=== PATIENT | female | born 1935 | race Caucasian/White ===

== ENCOUNTER 2020-02-24 19:15 | Inpatient (IN) | payer MEDICARE, SELFPAY ==
[2020-02-24] VITALS (12 sets, daily range): BP systolic 101–144; BP diastolic 57–106; PULSE 79–98; RESP 16–44; TEMP 36.9–37.2; O2SAT 90–95; BMI 24.3
--- NOTE | 2020-02-24 19:28 | DI.RAD.S_ITS ---
PROCEDURE: XR CHEST 1V INDICATIONS: SOB, cough, chest pain TECHNIQUE: One view of the chest was acquired. COMPARISON: None. FINDINGS: Surgical changes and devices: Post median sternotomy and CABG. Lungs and pleura: Left lung base is difficult to evaluate due to suspected diaphragmatic hernia. There appears to be mild airspace opacity at the left lung base. No significant pleural effusions. No pneumothorax. Mediastinum: Mediastinal contours are within normal limits. Suspect left diaphragmatic hernia versus diaphragmatic eventration. Marked cardiomegaly. Bones and chest wall: No suspicious bony lesions. Overlying soft tissues appear unremarkable. IMPRESSION: 1. Marked cardiomegaly. 2. Suspect mild airspace opacity at the left lung base. This could be due to pneumonia or atelectasis. 3. Left diaphragmatic hernia of versus diaphragmatic eventration. -This could be further evaluated with CT of the chest. Dictated by: Stepan Ferro M.D. on 02/24/2020 at 20:30 Approved by: Stepan Ferro M.D. on 02/24/2020 at 20:33
--- NOTE | 2020-02-24 19:36 | PC.NURSE ---
When pt arrived her only complaint was persistent middle back pain. Upon further questioning she reports that around 0200 this AM she started to experience body aches, chills, slight chest pain, and back pain and was convinced that she had COVID and went to the walk in clinic this morning to be tested. Test will not result for 3 days. All of her symptoms have resolved except her back pain. MD informed of updated complaints
[2020-02-24 19:39] LABS: Add Manual Diff / Slide Review NO; Basophils Absolute Auto 100 /uL (0-100); Basophils Percent Auto 0.2 % (0-2); Eosinophils Absolute Auto 0 /uL (0-450); Hematocrit 39.2 % (36-46); Hemoglobin 13.4 g/dL (12.0-16.0); Lymphocytes Absolute Auto 600 /uL (1100-4500); Lymphocytes Percent Auto 2.6 % (25-40); Mean Corpuscular Hemoglobin 32.5 PG (26-34); Mean Corpuscular Volume 95.6 fL (80-100); Monocytes Absolute Auto 1200 /uL (0-900); Monocytes Percent Auto 5.6 % (3-14); Neutrophils Absolute Auto 20300 /uL (1500-7000); Neutrophils Percent Auto 91.6 % (50-75); Platelet Count 205 X10^3/uL (150-400); Red Cell Distribution Width 14.4 % (11.6-14.8); White Blood Cell Count 22.2 X10^3/uL (4.5-11.0)
[2020-02-24 19:49] LABS: D Dimer 316 ng/mL (<230)
[2020-02-24 19:52] LABS: Alanine Aminotransferase 33 IU/L (<35); Albumin 4.4 g/dL (3.5-5.0); Albumin Globulin Ratio 1.3 (1.0-2.8); Alkaline Phosphatase 96 U/L (38-126); Aspartate Aminotransferase 47 IU/L (14-36); BUN Creatinine Ratio 23.6 (6-22); Bilirubin Total 1.3 mg/dL (0.2-1.3); Blood Urea Nitrogen 21 mg/dL (7-17); Calcium 9.6 mg/dL (8.4-10.2); Carbon Dioxide 25 mmol/L (22-32); Chloride 92 mmol/L (98-107); Creatine Kinase 121 U/L (30-135); Estimated Glomerular Filt Rate > 60.0 mL/min (>60); Globulin 3.5 g/dL (1.7-4.1); Glucose 134 mg/dL (80-110); HEMOLYSIS < 15 (0-50); Lipase 96 U/L (23-300); Potassium 3.8 mmol/L (3.4-5.1); Sodium 126 mmol/L (137-145); Total Protein 7.9 g/dL (6.3-8.2)
[2020-02-24 20:05] LABS: COVID19 -Nasal RAPID Negative (Negative)
[2020-02-24 20:07] LABS: Procalcitonin 9.67 ng/mL (<0.5)
[2020-02-24] MEDS: SODIUM CHLORIDE 0.9% 1,000 ML 150 ML IV (20:10)
[2020-02-24 20:28] LABS: NT-proBNP (BNP-Adult 18+) 4800 pg/mL (<450)
[2020-02-24 20:32] LABS: CKMB % Relative Index 0.9 % (1.5-5.0); Creatine Kinase MB 1.09 ng/mL (<2.37); Troponin I < 0.012 ng/mL (0.01-0.034)
--- NOTE | 2020-02-24 20:59 | ED.BACK ---
HPI - Back Pain/Injury General Chief Complaint: Back Pain/Injury Stated Complaint: back pain Time Seen by Provider: 02/24/20 19:20 Source: patient and EMS Limitations: no limitations History of Present Illness HPI Narrative: 84-year-old female former smoker with history of hypertension, hyperlipidemia, hypothyroid presents with a chief complaint of ongoing shortness of breath with productive cough, fever, chills and back pain. She states her back pain is worse when she takes a deep breath. She denies nausea or vomiting. She denies any abdominal pain constipation or diarrhea. She denies any dysuria, frequency or urgency. She was seen and evaluated at an outside clinic earlier today and had a COVID swab which will not return for many days. Minimal exertion will cause room air pulse ox to dip into the upper 80s MD Complaint: back pain Onset (ago): hour(s) Duration: intermittent Similar Symptoms Previously: No Location: thoracic spine Severity: mild Quality: sharp Radiation: none Exacerbating factors: deep breaths Associated symptoms: fever and chills Related Data Home Medications Medication Instructions Recorded Confirmed amlodipine 5 mg PO DAILY 02/24/20 02/24/20 atorvastatin 20 mg PO BID 02/24/20 02/25/20 hydrochlorothiazide 12.5 mg PO DAILY 02/24/20 02/24/20 levothyroxine 88 mcg PO DAILY 02/24/20 02/25/20 losartan 50 mg PO BID 02/24/20 02/24/20 metoprolol tartrate 50 mg PO BID 02/24/20 02/24/20 omeprazole 20 mg PO BEDTIME 02/24/20 02/24/20 warfarin 3.75 mg PO SEEINSTR 02/24/20 02/24/20 warfarin 5 mg PO SEEINSTR 02/24/20 02/24/20 ferrous gluconate 324 mg PO DAILY 02/25/20 02/25/20 magnesium oxide 400 mg PO BID 02/25/20 02/25/20 Allergies Allergy/AdvReac Type Severity Reaction Status Date / Time No Known Drug Allergies Allergy Verified 02/24/20 19:26 Review of Systems Constitutional Constitutional: Reports body ache(s), Reports chills, Denies fatigue, Reports fever(s), Denies frequent falls, Denies lethargy and Denies weakness Eyes Eyes: Denies change in vision, Denies eye discharge, Denies irritation and Denies loss of vision ENT Ears, Nose, Mouth, and Throat: Denies change in voice, Denies dizziness, Denies neck pain, Denies sore throat and Denies throat swelling Cardiovascular Cardiovascular: Denies chest pain, Denies irregular heart rhythm, Denies lightheadedness, Denies palpitations, Reports dyspnea, Denies dyspnea on exertion and Denies orthopnea Respiratory Respiratory: Reports cough, Reports pain with cough, Reports dyspnea, Denies dyspnea on exertion and Denies wheezing Gastrointestinal Gastrointestinal: Denies abdominal pain, Denies change in bowel habits, Denies diarrhea, Denies nausea and Denies vomiting Musculoskeletal Musculoskeletal: Reports back pain, Denies neck pain and Denies numbness Integumentary/Breasts Skin/Breast: Denies pruritus, Denies erythema, Denies rash and Denies wounds Neurologic Neurologic: Denies behavioral changes, Denies confusion, Denies dizziness, Denies frequent falls, Denies loss of vision, Denies numbness and Denies weakness Psychiatric Psychiatric: Denies anxiety, Denies behavioral changes, Denies confusion, Denies depression, Denies homicidal ideation and Denies suicidal ideation Endocrine Endocrine: Denies fatigue, Denies flushing and Denies palpitations Hematologic/Lymphatic Hematologic/Lymphatic: Denies easy bruising Allergic/Immunologic Allergic/Immunologic: Denies urticaria, Denies throat swelling and Denies wheezing Patient History Medical History Atrial fibrillation, chronic Essential hypertension Hyperlipidemia Hypothyroid Social History household members: none Smoking Status: Former smoker alcohol intake: former Smoking Status: Never smoker alcohol intake frequency: 0-2 drinks per day Substance Use Type: does not use Exam Narrative Exam Narrative: GENERAL: [84] year old patient appears stated age. Well-nourished, well-developed patient, in mild distress. HEAD: Atraumatic. Normocephalic. EYES: Pupils equal round and reactive. Extraocular motions intact. No scleral icterus. No injection or drainage. ENT: Nose without bleeding, purulent drainage. Throat without erythema, tonsillar hypertrophy or exudate. Airway patent. NECK: Trachea midline. Non tender CARDIOVASCULAR: Regular rate and rhythm without murmurs, gallops, or rubs. RESPIRATORY: Faint crackles in bases, no significant work of breathing GASTROINTESTINAL: Abdomen soft, non-tender, nondistended. EXTREMITIES: No edema or joint tenderness. BACK: Nontender without deformity or crepitance. No flank tenderness. NEURO: AOx3. SKIN: No rash or erythema of visible areas Initial Vital Signs Initial Vital Signs: Vital Signs Temperature 98.5 F 02/24/20 19:22 Pulse Rate 95 H 02/24/20 19:22 Respiratory Rate 16 02/24/20 19:22 Blood Pressure 144/106 H 02/24/20 19:22 Pulse Oximetry 93 02/24/20 19:22 Course Orders Ordered: ED Orders 02/24/20 19:26 Complete Blood Count AUTO DIFF Stat Comprehensive Metabolic Panel Stat D Dimer Stat Lactate (Lactic Acid) Stat Lipase Stat Magnesium Stat NT-proBNP (BNP-Adult 18+) Stat Procalcitonin Stat Prothrombin Time INR Stat Troponin & CK Cardiac Panel Stat 02/24/20 19:27 COVID19 Stat 02/24/20 19:28 XR chest 1V Stat 02/24/20 21:20 Blood Culture Stat 02/24/20 21:56 Respiratory Panel (Film Array) Stat Acetaminophen (Acetaminophen 325 Mg Tablet) 650 mg PO Q6HR PRN PRN Reason: Fever/Mild Pain (1-3) Amlodipine Besylate (Amlodipine 5 Mg Tablet) 5 mg PO DAILY LIA Atorvastatin Calcium (Atorvastatin 20 Mg Tablet) 40 mg PO BEDTIME LIA Last Admin: 02/25/20 01:29 Dose: 20 mg Documented by: MARVIN Azithromycin (Azithromycin 250 Mg Tablet) 500 mg PO DAILY LIA Calcium Carbonate (Calcium Carbonate 500 Mg Tab) 1,000 mg PO Q4HR PRN PRN Reason: Dyspepsia Last Admin: 02/25/20 01:28 Dose: 1,000 mg Documented by: MARVIN Sodium Chloride (Normal Saline 0.9%) 1,000 mls @ 150 mls/hr IV CONT LIA Last Infusion: 02/24/20 22:51 Dose: 0 mls/hr Documented by: Admin: 02/24/20 20:10 Dose: 150 mls/hr Documented by: ROSS Ceftriaxone Sodium/Dextrose (Rocephin) 1 gm in 50 mls @ 100 mls/hr IV Q24H LIA Levothyroxine Sodium (Levothyroxine 88 Mcg Tablet) 88 mcg PO QACBREAK LIA Losartan Potassium (Losartan 50 Mg Tablet) 50 mg PO BID COUNTS INCLUDE 234 BEDS AT THE [facility] Metoprolol Tartrate (Metoprolol Ir 50 Mg Tablet) 50 mg PO BID COUNTS INCLUDE 234 BEDS AT THE [facility] Naloxone HCl (Naloxone 0.4 Mg/Ml Vial) 0.2 mg IV Q2MIN PRN PRN Reason: Opiate Reversal Non-Formulary Medication (Warfarin) 3.75 mg PO SEEINSTR COUNTS INCLUDE 234 BEDS AT THE [facility] Ondansetron HCl (Ondansetron 4 Mg/2 Ml Inj) 4 mg IV Q8HR PRN PRN Reason: Nausea And Vomiting Pantoprazole Sodium (Pantoprazole 20 Mg Tablet) 20 mg PO BEDTIME COUNTS INCLUDE 234 BEDS AT THE [facility] Warfarin Sodium (Warfarin 5 Mg Tablet) 5 mg PO WEEKLY@1700 COUNTS INCLUDE 234 BEDS AT THE [facility] Warfarin Sodium (Warfarin 5 Mg Tablet) 5 mg PO WEEKLY@1700 COUNTS INCLUDE 234 BEDS AT THE [facility] Discontinued Medications Ceftriaxone Sodium/Dextrose (Rocephin) 2 gm in 50 mls @ 100 mls/hr IV NOW ONE Stop: 02/24/20 21:29 Last Infusion: 02/24/20 21:53 Dose: 0 mls/hr Documented by: Admin: 02/24/20 21:26 Dose: 100 mls/hr Documented by: ROSS Azithromycin 500 mg/ Dextrose 250 mls @ 250 mls/hr IV NOW ONE Stop: 02/24/20 21:01 Last Infusion: 02/24/20 22:52 Dose: 0 mls/hr Documented by: Admin: 02/24/20 21:52 Dose: 250 mls/hr Documented by: ROSS Ketorolac Tromethamine (Ketorolac 60 Mg/2 Ml Vial) 10 mg IV NOW ONE Stop: 02/24/20 21:44 Last Admin: 02/24/20 21:53 Dose: 10 mg Documented by: ROSS Warfarin Sodium (Warfarin 1 Mg Tablet) 3.75 mg PO NOW ONE Stop: 02/25/20 00:25 Last Admin: 02/25/20 02:37 Dose: Not Given Documented by: MARVIN Warfarin Sodium (Warfarin 2 Mg Tablet) 4 mg PO NOW ONE Stop: 02/25/20 02:01 Last Admin: 02/25/20 02:11 Dose: 4 mg Documented by: MARVIN Vital Signs Vital signs: Vital Signs - 8 hr 02/24/20 19:22 02/24/20 19:24 02/24/20 19:30 Temperature 98.5 F Pulse Rate 95 H 92 H 86 Respiratory Rate 16 25 H 27 H Blood Pressure 144/106 H Pulse Oximetry 93 92 92 02/24/20 19:32 02/24/20 20:00 02/24/20 20:30 Temperature Pulse Rate 89 98 H 86 Respiratory Rate 34 H 44 H 32 H Blood Pressure 119/59 L 109/77 117/68 Pulse Oximetry 91 95 92 02/24/20 21:00 02/24/20 21:30 02/24/20 22:00 Temperature Pulse Rate 89 88 84 Respiratory Rate 34 H 26 H Blood Pressure 126/67 123/67 129/79 Pulse Oximetry 93 93 92 02/24/20 22:30 Temperature Pulse Rate 84 Respiratory Rate Blood Pressure 101/57 L Pulse Oximetry 90 L MDM - Back Pain/Injury Lab Data Result diagrams: 02/24/20 19:26 02/24/20 19:26 Labs: Lab Results 02/24/20 02/24/20 02/24/20 Range/Units 19:26 19:26 19:26 WBC (4.5-11.0) X10^3/uL RBC (4.0-5.2) X10^6/uL Hgb (12.0-16.0) g/dL Hct (36-46) % MCV (80-100) fL MCH (26-34) PG MCHC (30-36) % RDW (11.6-14.8) % Plt Count (150-400) X10^3/uL Neut % (Auto) (50-75) % Lymph % (Auto) (25-40) % [place] % (Auto) (3-14) % Eos % (Auto) (2-4) % Baso % (Auto) (0-2) % Neut # (Auto) (3392-4146) /uL Lymph # (Auto) (1201-2657) /uL [place] # (Auto) (0-900) /uL Eos # (Auto) (0-450) /uL Baso # (Auto) (0-100) /uL PT (10.1-12.7) SECONDS INR (0.9-1.3) D-Dimer 316 H (<230) ng/mL Sodium (137-145) mmol/L Potassium (3.4-5.1) mmol/L Chloride (98-107) mmol/L Carbon Dioxide (22-32) mmol/L BUN (7-17) mg/dL Creatinine (0.52-1.04) mg/dL Estimated GFR (>60) mL/min BUN/Creatinine Ratio (6-22) Glucose (80-110) mg/dL Lactate (0.7-2.1) mmol/L Calcium (8.4-10.2) mg/dL Magnesium (1.6-2.3) mg/dL Total Bilirubin (0.2-1.3) mg/dL AST (14-36) IU/L ALT (<35) IU/L Alkaline Phosphatase (38-126) U/L Total Creatine Kinase (30-135) U/L CK-MB (CK-2) (<2.37) ng/mL CK-MB (CK-2) Rel Index (1.5-5.0) % Troponin I (0.01-0.034) ng/mL NT-Pro-B Natriuret Pep 4800 H (<450) pg/mL Total Protein (6.3-8.2) g/dL Albumin (3.5-5.0) g/dL Globulin (1.7-4.1) g/dL Albumin/Globulin Ratio (1.0-2.8) Lipase (23-300) U/L Procalcitonin 9.67 H (<0.5) ng/mL Chlamy pneumoniae PCR (Not Detect) Adenovirus (PCR) (Not Detect) B.parapertussis DNA PCR (Not Detect) Coronavirus OC43 (PCR) (Not Detect) Coronavirus HKU1 (PCR) (Not Detect) Coronavirus 229E (PCR) (Not Detect) SARS-CoV-2 (PCR) (Negative) Coronavirus NL63 (PCR) (Not Detect) Human Metapneumovir PCR (Not Detect) Influenza Type A (PCR) (Not Detect) Influenza Type B (PCR) (Not Detect) M. pneumoniae (PCR) (Not Detect) Parainfluenza 1 (PCR) (Not Detect) Parainfluenza 2 (PCR) (Not Detect) Parainfluenza 3 (PCR) (Not Detect) Parainfluenza 4 (PCR) (Not Detect) RSV (PCR) (Not Detect) Entero/Rhino (PCR) (Not Detect) 02/24/20 02/24/20 02/24/20 Range/Units 19:26 19:26 19:26 WBC 22.2 H (4.5-11.0) X10^3/uL RBC 4.10 (4.0-5.2) X10^6/uL Hgb 13.4 (12.0-16.0) g/dL Hct 39.2 (36-46) % MCV 95.6 (80-100) fL MCH 32.5 (26-34) PG MCHC 34.0 (30-36) % RDW 14.4 (11.6-14.8) % Plt Count 205 (150-400) X10^3/uL Neut % (Auto) 91.6 H (50-75) % Lymph % (Auto) 2.6 L (25-40) % [place] % (Auto) 5.6 (3-14) % Eos % (Auto) 0.0 L (2-4) % Baso % (Auto) 0.2 (0-2) % Neut # (Auto) 07745 H (2607-8273) /uL Lymph # (Auto) 600 L (8334-9774) /uL [place] # (Auto) 1200 H (0-900) /uL Eos # (Auto) 0 (0-450) /uL Baso # (Auto) 100 (0-100) /uL PT (10.1-12.7) SECONDS INR (0.9-1.3) D-Dimer (<230) ng/mL Sodium 126 L (137-145) mmol/L Potassium 3.8 (3.4-5.1) mmol/L Chloride 92 L (98-107) mmol/L Carbon Dioxide 25 (22-32) mmol/L BUN 21 H (7-17) mg/dL Creatinine 0.89 (0.52-1.04) mg/dL Estimated GFR > 60.0 (>60) mL/min BUN/Creatinine Ratio 23.6 H (6-22) Glucose 134 H (80-110) mg/dL Lactate 1.9 (0.7-2.1) mmol/L Calcium 9.6 (8.4-10.2) mg/dL Magnesium (1.6-2.3) mg/dL Total Bilirubin 1.3 (0.2-1.3) mg/dL AST 47 H (14-36) IU/L ALT 33 (<35) IU/L Alkaline Phosphatase 96 (38-126) U/L Total Creatine Kinase 121 (30-135) U/L CK-MB (CK-2) 1.09 (<2.37) ng/mL CK-MB (CK-2) Rel Index 0.9 L (1.5-5.0) % Troponin I < 0.012 (0.01-0.034) ng/mL NT-Pro-B Natriuret Pep (<450) pg/mL Total Protein 7.9 (6.3-8.2) g/dL Albumin 4.4 (3.5-5.0) g/dL Globulin 3.5 (1.7-4.1) g/dL Albumin/Globulin Ratio 1.3 (1.0-2.8) Lipase 96 (23-300) U/L Procalcitonin (<0.5) ng/mL Chlamy pneumoniae PCR (Not Detect) Adenovirus (PCR) (Not Detect) B.parapertussis DNA PCR (Not Detect) Coronavirus OC43 (PCR) (Not Detect) Coronavirus HKU1 (PCR) (Not Detect) Coronavirus 229E (PCR) (Not Detect) SARS-CoV-2 (PCR) (Negative) Coronavirus NL63 (PCR) (Not Detect) Human Metapneumovir PCR (Not Detect) Influenza Type A (PCR) (Not Detect) Influenza Type B (PCR) (Not Detect) M. pneumoniae (PCR) (Not Detect) Parainfluenza 1 (PCR) (Not Detect) Parainfluenza 2 (PCR) (Not Detect) Parainfluenza 3 (PCR) (Not Detect) Parainfluenza 4 (PCR) (Not Detect) RSV (PCR) (Not Detect) Entero/Rhino (PCR) (Not Detect) 02/24/20 02/24/20 02/24/20 Range/Units 19:26 19:26 19:27 WBC (4.5-11.0) X10^3/uL RBC (4.0-5.2) X10^6/uL Hgb (12.0-16.0) g/dL Hct (36-46) % MCV (80-100) fL MCH (26-34) PG MCHC (30-36) % RDW (11.6-14.8) % Plt Count (150-400) X10^3/uL Neut % (Auto) (50-75) % Lymph % (Auto) (25-40) % [place] % (Auto) (3-14) % Eos % (Auto) (2-4) % Baso % (Auto) (0-2) % Neut # (Auto) (6977-1235) /uL Lymph # (Auto) (8050-2705) /uL [place] # (Auto) (0-900) /uL Eos # (Auto) (0-450) /uL Baso # (Auto) (0-100) /uL PT 26.8 H (10.1-12.7) SECONDS INR 2.3 H (0.9-1.3) D-Dimer (<230) ng/mL Sodium (137-145) mmol/L Potassium (3.4-5.1) mmol/L Chloride (98-107) mmol/L Carbon Dioxide (22-32) mmol/L BUN (7-17) mg/dL Creatinine (0.52-1.04) mg/dL Estimated GFR (>60) mL/min BUN/Creatinine Ratio (6-22) Glucose (80-110) mg/dL Lactate (0.7-2.1) mmol/L Calcium (8.4-10.2) mg/dL Magnesium 1.7 (1.6-2.3) mg/dL Total Bilirubin (0.2-1.3) mg/dL AST (14-36) IU/L ALT (<35) IU/L Alkaline Phosphatase (38-126) U/L Total Creatine Kinase (30-135) U/L CK-MB (CK-2) (<2.37) ng/mL CK-MB (CK-2) Rel Index (1.5-5.0) % Troponin I (0.01-0.034) ng/mL NT-Pro-B Natriuret Pep (<450) pg/mL Total Protein (6.3-8.2) g/dL Albumin (3.5-5.0) g/dL Globulin (1.7-4.1) g/dL Albumin/Globulin Ratio (1.0-2.8) Lipase (23-300) U/L Procalcitonin (<0.5) ng/mL Chlamy pneumoniae PCR (Not Detect) Adenovirus (PCR) (Not Detect) B.parapertussis DNA PCR (Not Detect) Coronavirus OC43 (PCR) (Not Detect) Coronavirus HKU1 (PCR) (Not Detect) Coronavirus 229E (PCR) (Not Detect) SARS-CoV-2 (PCR) Negative (Negative) Coronavirus NL63 (PCR) (Not Detect) Human Metapneumovir PCR (Not Detect) Influenza Type A (PCR) (Not Detect) Influenza Type B (PCR) (Not Detect) M. pneumoniae (PCR) (Not Detect) Parainfluenza 1 (PCR) (Not Detect) Parainfluenza 2 (PCR) (Not Detect) Parainfluenza 3 (PCR) (Not Detect) Parainfluenza 4 (PCR) (Not Detect) RSV (PCR) (Not Detect) Entero/Rhino (PCR) (Not Detect) 02/24/20 Range/Units 21:56 WBC (4.5-11.0) X10^3/uL RBC (4.0-5.2) X10^6/uL Hgb (12.0-16.0) g/dL Hct (36-46) % MCV (80-100) fL MCH (26-34) PG MCHC (30-36) % RDW (11.6-14.8) % Plt Count (150-400) X10^3/uL Neut % (Auto) (50-75) % Lymph % (Auto) (25-40) % [place] % (Auto) (3-14) % Eos % (Auto) (2-4) % Baso % (Auto) (0-2) % Neut # (Auto) (9257-5870) /uL Lymph # (Auto) (5359-7551) /uL [place] # (Auto) (0-900) /uL Eos # (Auto) (0-450) /uL Baso # (Auto) (0-100) /uL PT (10.1-12.7) SECONDS INR (0.9-1.3) D-Dimer (<230) ng/mL Sodium (137-145) mmol/L Potassium (3.4-5.1) mmol/L Chloride (98-107) mmol/L Carbon Dioxide (22-32) mmol/L BUN (7-17) mg/dL Creatinine (0.52-1.04) mg/dL Estimated GFR (>60) mL/min BUN/Creatinine Ratio (6-22) Glucose (80-110) mg/dL Lactate (0.7-2.1) mmol/L Calcium (8.4-10.2) mg/dL Magnesium (1.6-2.3) mg/dL Total Bilirubin (0.2-1.3) mg/dL AST (14-36) IU/L ALT (<35) IU/L Alkaline Phosphatase (38-126) U/L Total Creatine Kinase (30-135) U/L CK-MB (CK-2) (<2.37) ng/mL CK-MB (CK-2) Rel Index (1.5-5.0) % Troponin I (0.01-0.034) ng/mL NT-Pro-B Natriuret Pep (<450) pg/mL Total Protein (6.3-8.2) g/dL Albumin (3.5-5.0) g/dL Globulin (1.7-4.1) g/dL Albumin/Globulin Ratio (1.0-2.8) Lipase (23-300) U/L Procalcitonin (<0.5) ng/mL Chlamy pneumoniae PCR Not detected (Not Detect) Adenovirus (PCR) Not detected (Not Detect) B.parapertussis DNA PCR Not detected (Not Detect) Coronavirus OC43 (PCR) Not detected (Not Detect) Coronavirus HKU1 (PCR) Not detected (Not Detect) Coronavirus 229E (PCR) Not detected (Not Detect) SARS-CoV-2 (PCR) Not detected (Negative) Coronavirus NL63 (PCR) Not detected (Not Detect) Human Metapneumovir PCR Not detected (Not Detect) Influenza Type A (PCR) Not detected (Not Detect) Influenza Type B (PCR) Not detected (Not Detect) M. pneumoniae (PCR) Not detected (Not Detect) Parainfluenza 1 (PCR) Not detected (Not Detect) Parainfluenza 2 (PCR) Not detected (Not Detect) Parainfluenza 3 (PCR) Not detected (Not Detect) Parainfluenza 4 (PCR) Not detected (Not Detect) RSV (PCR) Not detected (Not Detect) Entero/Rhino (PCR) Not detected (Not Detect) Discharge Plan Departure Patient Disposition: Admitted As Inpatient Clinical Impression: Acute respiratory failure with hypoxemia, Acute hyponatremia Pneumonia Qualifiers: Pneumonia type: due to unspecified organism Laterality: left Lung location: lower lobe of lung Qualified Code(s): J18.9 - Pneumonia, unspecified organism Admit Date/Time: 02/24/20 22:36 Admit Provider: Jerilyn Donaldson
[2020-02-24 21:13] LABS: Lactate (Lactic Acid) 1.9 mmol/L (0.7-2.1)
[2020-02-24] MEDS: CEFTRIAXONE 2 GM/50 ML FROZ.PIGGY IV (21:26)
[2020-02-24] MEDS: AZITHROMYCIN 500 MG in DEXTROSE 5% IN WATER 250 ML IV (21:52)
[2020-02-24] MEDS: KETOROLAC 60 MG/2 ML VIAL 10 MG IV (21:53)
[2020-02-24 22:30] LABS: INR 2.3 (0.9-1.3); Prothrombin Time 26.8 SECONDS (10.1-12.7)
[2020-02-24 22:32] LABS: Magnesium 1.7 mg/dL (1.6-2.3)
--- NOTE | 2020-02-24 22:38 | PC.NURSE ---
Bandar Hoffman: [facility] [phone]
[2020-02-24 22:54] LABS: Adenovirus Not Detected (Not Detect)
[2020-02-24 22:55] LABS: Bordetella pertussis Not Detected (Not Detect); Chlamydophila pneumoniae Not Detected (Not Detect); Coronavirus 229E Not Detected (Not Detect); Coronavirus HKU1 Not Detected (Not Detect); Coronavirus NL 63 Not Detected (Not Detect); Coronavirus OC43 Not Detected (Not Detect); Human Metapneumovirus Not Detected (Not Detect); Human Rhinovirus/Enterovirus Not Detected (Not Detect); Influenza A Not Detected (Not Detect); Influenza B Not Detected (Not Detect); Mycoplasma pneumoniae Not Detected (Not Detect); Parainfluenza Virus 1 Not Detected (Not Detect); Parainfluenza Virus 2 Not Detected (Not Detect); Parainfluenza Virus 3 Not Detected (Not Detect); Parainfluenza Virus 4 Not Detected (Not Detect); Respiratory Syncytial Virus Not Detected (Not Detect); SARS- CoV-2 Not Detected (Not Detecte)
--- NOTE | 2020-02-24 23:03 | PC.ADMIT ---
[address] Admission Note: The patient,Ana Hoffman,84 y/o, was given written information regarding hospital policies, unit procedures and contact persons. Patient's smoking status: Former smoker. Vital Signs - 8 hr 02/24/20 19:22 02/24/20 19:24 02/24/20 19:30 Temperature 98.5 F Pulse Rate 95 H 92 H 86 Respiratory Rate 16 25 H 27 H Blood Pressure 144/106 H Pulse Oximetry 93 92 92 02/24/20 19:32 02/24/20 20:00 02/24/20 20:30 Temperature Pulse Rate 89 98 H 86 Respiratory Rate 34 H 44 H 32 H Blood Pressure 119/59 L 109/77 117/68 Pulse Oximetry 91 95 92 02/24/20 21:00 02/24/20 21:30 02/24/20 22:00 Temperature Pulse Rate 89 88 84 Respiratory Rate 34 H 26 H Blood Pressure 126/67 123/67 129/79 Pulse Oximetry 93 93 92 02/24/20 22:30 Temperature Pulse Rate 84 Respiratory Rate Blood Pressure 101/57 L Pulse Oximetry 90 L Patient up from ED via stretcher. Patient tolerated transfer well. Patient very A&O, calm and cooperative. Glen pain at this time.
[2020-02-25] VITALS (10 sets, daily range): BP systolic 101–135; BP diastolic 57–81; PULSE 71–106; RESP 14–20; TEMP 36.2–37.5; O2SAT 87–96
[2020-02-25] MEDS: CALCIUM CARBONATE 500 MG TAB 1000 MG PO ×2 (01:28→16:07)
[2020-02-25] MEDS: ATORVASTATIN 20 MG TABLET 40 MG PO ×2 (01:29→16:45)
[2020-02-25] MEDS: WARFARIN 2 MG TABLET 4 MG PO (02:11)
--- NOTE | 2020-02-25 03:27 | P.HP_ITS ---
History of Present Illness History of Present Illness Date Patient Seen: 02/24/20 Time Patient Seen: 23:55 Chief complaint: back pain Narrative: Ana Hoffman is a pleasant 84-year-old female who initially presented to the emergency department with upper back pain. She said it was hard to breathe started around 2 this morning and she had sore and achy joints. She states that she was quite shaky and attempted to take her temperature and the 1st 1 it was 99.10 and then at 10:00 a.m. it was 98.3 she has had mid epigastric pain nonproductive cough she threw up 1/tonight which produced a small amount of vomit almost to her like a dry heave she has also had loose stools for the last several days. She was very concerned that she had COVID. She also complained of nasal congestion which is chronic, she wears hearing aids so she is a little bit hard of hearing, breathing is painful but not difficult, and she was concerned about pain in the back of her knee that also started at the same time. The patient has a history of paroxysmal atrial fibrillation anticoagulated on warfarin, hypertension, coronary artery disease, hyperlipidemia and hypothyroidism. Chest x-ray done in the ED indicated left lower lobe pneumonia with cardiomegaly. His of very high white count of 22.2, RBC 4.10, hemoglobin 13.4, hematocrit 39.2, platelet count of 205, she has a left shift with a neutrophil count of 20,000, she is therapeutic with an INR of 2.3, sodium is 126, potassium 3.8, chloride 92, bicarb 25, BUN 21, creatinine 0.89 with a GFR of 6 greater than 60, glucose 134, lactate 1.9, magnesium 1.7, AST is elevated at 47, proBNP is 4800, procalcitonin is 9.67, viral panel including COVID-19 PCR are negative. Patient History Medical History Atrial fibrillation, chronic Essential hypertension Hyperlipidemia Hypothyroid Family & Social History Social History: household members none Prior Living Arrangements House Safety & Behavioral: Feels Safe in Current Yes Environment Been Physically Hurt or No Threatened By a Person Suicide Plan Description No Plan Tobacco & Substance use: Smoking Status Former smoker alcohol intake former alcohol intake frequency 0-2 drinks per day Substance Use Type does not use Meds Home Medications and Allergies Home Medications Medication Instructions Recorded Confirmed Type amlodipine 5 mg PO DAILY 02/24/20 02/24/20 History atorvastatin 20 mg PO BID 02/24/20 02/25/20 History hydrochlorothiazide 12.5 mg PO DAILY 02/24/20 02/24/20 History levothyroxine 88 mcg PO DAILY 02/24/20 02/25/20 History losartan 50 mg PO BID 02/24/20 02/24/20 History metoprolol tartrate 50 mg PO BID 02/24/20 02/24/20 History omeprazole 20 mg PO BEDTIME 02/24/20 02/24/20 History warfarin 3.75 mg PO SEEINSTR 02/24/20 02/24/20 History warfarin 5 mg PO SEEINSTR 02/24/20 02/24/20 History ferrous gluconate 324 mg PO DAILY 02/25/20 02/25/20 History magnesium oxide 400 mg PO BID 02/25/20 02/25/20 History Allergies Allergy/AdvReac Type Severity Reaction Status Date / Time No Known Drug Allergies Allergy Verified 02/24/20 19:26 Review of Systems Review of Systems ROS: Yes All systems reviewed with the patient and are negative except as otherwise documented Exam Vital Signs (past 8 hours): - 02/24/20 19:30 02/24/20 19:32 02/24/20 20:00 Temperature Pulse Rate 86 89 98 H Respiratory Rate 27 H 34 H 44 H Blood Pressure 119/59 L 109/77 Pulse Oximetry 92 91 95 02/24/20 20:30 02/24/20 21:00 02/24/20 21:30 Temperature Pulse Rate 86 89 88 Respiratory Rate 32 H 34 H Blood Pressure 117/68 126/67 123/67 Pulse Oximetry 92 93 93 02/24/20 22:00 02/24/20 22:30 02/24/20 22:40 Temperature 99.0 F Pulse Rate 84 84 86 Respiratory Rate 26 H 16 Blood Pressure 129/79 101/57 L 104/65 Pulse Oximetry 92 90 L 94 02/24/20 23:48 02/25/20 02:20 Temperature 99.5 F Pulse Rate 79 106 H Respiratory Rate 16 18 Blood Pressure 127/60 Pulse Oximetry 92 92 Oxygen Delivery Method Room Air Narrative Exam Narrative: Gen: Alert, oriented, well-developed 84 y.o. female, appears ill HEENT: normocephalic, atraumatic, conjunctiva clear, sclera non-icteric, oral mucosa pink and moist Neck: supple, full ROM, no JVD, trachea is midline Resp: Lungs sounds are course and diminished on the left, non-labored breathing CV: RRR, no murmur or rubs Abd: soft, non-tender, normoactive BTs Skin: no lesions or rashes, dry and intact Neuro: Alert and oriented X 4 w/no focal deficits. Speech clear and coherent. Extremities: moves all 4 extremities, is ambulatory, negative Rudy?s sign Psyche: normal mood and affect. Objective Labs Result Diagrams: 02/24/20 19:26 02/24/20 19:26 Labs: Laboratory Results - last 24 hr 02/24/20 02/24/20 02/24/20 19:26 19:26 19:26 WBC RBC Hgb Hct MCV MCH MCHC RDW Plt Count Neut % (Auto) Lymph % (Auto) [place] % (Auto) Eos % (Auto) Baso % (Auto) Neut # (Auto) Lymph # (Auto) [place] # (Auto) Eos # (Auto) Baso # (Auto) PT INR D-Dimer 316 H Sodium Potassium Chloride Carbon Dioxide BUN Creatinine Estimated GFR BUN/Creatinine Ratio Glucose Lactate Calcium Magnesium Total Bilirubin AST ALT Alkaline Phosphatase Total Creatine Kinase CK-MB (CK-2) CK-MB (CK-2) Rel Index Troponin I NT-Pro-B Natriuret Pep 4800 H Total Protein Albumin Globulin Albumin/Globulin Ratio Lipase Procalcitonin 9.67 H Chlamy pneumoniae PCR Adenovirus (PCR) B.parapertussis DNA PCR Coronavirus OC43 (PCR) Coronavirus HKU1 (PCR) Coronavirus 229E (PCR) SARS-CoV-2 (PCR) Coronavirus NL63 (PCR) Human Metapneumovir PCR Influenza Type A (PCR) Influenza Type B (PCR) M. pneumoniae (PCR) Parainfluenza 1 (PCR) Parainfluenza 2 (PCR) Parainfluenza 3 (PCR) Parainfluenza 4 (PCR) RSV (PCR) Entero/Rhino (PCR) 02/24/20 02/24/20 02/24/20 19:26 19:26 19:26 WBC 22.2 H RBC 4.10 Hgb 13.4 Hct 39.2 MCV 95.6 MCH 32.5 MCHC 34.0 RDW 14.4 Plt Count 205 Neut % (Auto) 91.6 H Lymph % (Auto) 2.6 L [place] % (Auto) 5.6 Eos % (Auto) 0.0 L Baso % (Auto) 0.2 Neut # (Auto) 50145 H Lymph # (Auto) 600 L [place] # (Auto) 1200 H Eos # (Auto) 0 Baso # (Auto) 100 PT INR D-Dimer Sodium 126 L Potassium 3.8 Chloride 92 L Carbon Dioxide 25 BUN 21 H Creatinine 0.89 Estimated GFR > 60.0 BUN/Creatinine Ratio 23.6 H Glucose 134 H Lactate 1.9 Calcium 9.6 Magnesium Total Bilirubin 1.3 AST 47 H ALT 33 Alkaline Phosphatase 96 Total Creatine Kinase 121 CK-MB (CK-2) 1.09 CK-MB (CK-2) Rel Index 0.9 L Troponin I < 0.012 NT-Pro-B Natriuret Pep Total Protein 7.9 Albumin 4.4 Globulin 3.5 Albumin/Globulin Ratio 1.3 Lipase 96 Procalcitonin Chlamy pneumoniae PCR Adenovirus (PCR) B.parapertussis DNA PCR Coronavirus OC43 (PCR) Coronavirus HKU1 (PCR) Coronavirus 229E (PCR) SARS-CoV-2 (PCR) Coronavirus NL63 (PCR) Human Metapneumovir PCR Influenza Type A (PCR) Influenza Type B (PCR) M. pneumoniae (PCR) Parainfluenza 1 (PCR) Parainfluenza 2 (PCR) Parainfluenza 3 (PCR) Parainfluenza 4 (PCR) RSV (PCR) Entero/Rhino (PCR) 02/24/20 02/24/20 02/24/20 19:26 19:26 19:27 WBC RBC Hgb Hct MCV MCH MCHC RDW Plt Count Neut % (Auto) Lymph % (Auto) [place] % (Auto) Eos % (Auto) Baso % (Auto) Neut # (Auto) Lymph # (Auto) [place] # (Auto) Eos # (Auto) Baso # (Auto) PT 26.8 H INR 2.3 H D-Dimer Sodium Potassium Chloride Carbon Dioxide BUN Creatinine Estimated GFR BUN/Creatinine Ratio Glucose Lactate Calcium Magnesium 1.7 Total Bilirubin AST ALT Alkaline Phosphatase Total Creatine Kinase CK-MB (CK-2) CK-MB (CK-2) Rel Index Troponin I NT-Pro-B Natriuret Pep Total Protein Albumin Globulin Albumin/Globulin Ratio Lipase Procalcitonin Chlamy pneumoniae PCR Adenovirus (PCR) B.parapertussis DNA PCR Coronavirus OC43 (PCR) Coronavirus HKU1 (PCR) Coronavirus 229E (PCR) SARS-CoV-2 (PCR) Negative Coronavirus NL63 (PCR) Human Metapneumovir PCR Influenza Type A (PCR) Influenza Type B (PCR) M. pneumoniae (PCR) Parainfluenza 1 (PCR) Parainfluenza 2 (PCR) Parainfluenza 3 (PCR) Parainfluenza 4 (PCR) RSV (PCR) Entero/Rhino (PCR) 02/24/20 21:56 WBC RBC Hgb Hct MCV MCH MCHC RDW Plt Count Neut % (Auto) Lymph % (Auto) [place] % (Auto) Eos % (Auto) Baso % (Auto) Neut # (Auto) Lymph # (Auto) [place] # (Auto) Eos # (Auto) Baso # (Auto) PT INR D-Dimer Sodium Potassium Chloride Carbon Dioxide BUN Creatinine Estimated GFR BUN/Creatinine Ratio Glucose Lactate Calcium Magnesium Total Bilirubin AST ALT Alkaline Phosphatase Total Creatine Kinase CK-MB (CK-2) CK-MB (CK-2) Rel Index Troponin I NT-Pro-B Natriuret Pep Total Protein Albumin Globulin Albumin/Globulin Ratio Lipase Procalcitonin Chlamy pneumoniae PCR Not detected Adenovirus (PCR) Not detected B.parapertussis DNA PCR Not detected Coronavirus OC43 (PCR) Not detected Coronavirus HKU1 (PCR) Not detected Coronavirus 229E (PCR) Not detected SARS-CoV-2 (PCR) Not detected Coronavirus NL63 (PCR) Not detected Human Metapneumovir PCR Not detected Influenza Type A (PCR) Not detected Influenza Type B (PCR) Not detected M. pneumoniae (PCR) Not detected Parainfluenza 1 (PCR) Not detected Parainfluenza 2 (PCR) Not detected Parainfluenza 3 (PCR) Not detected Parainfluenza 4 (PCR) Not detected RSV (PCR) Not detected Entero/Rhino (PCR) Not detected Assessment & Plan Assessment & Plan narrative: Tucker Hoffman is a very pleasant 84-year-old female who will be admitted for treatment of a left lower lobe pneumonia. Left lower lobe pneumonia, acute, present on admission -patient was started on IV ceftriaxone and azithromycin and this will be continued this morning Paroxysmal atrial fibrillation, chronic present on admission -telemetry -INR is therapeutic at 2.3 -she takes a alternating dose of warfarin and will need to bring her pills in to arrive at the correct dose. She would have normally taken 3.75 mg tonight but the pharmacy did not have doses that could be divided accurately to that amount so she will receive a 1 time dose of warfarin 4 mg tonight. She will resume her normal dosing when her daughter brings in her pills. -daily PT INRs -[facility] unknown when and if she has had an echo done recently. Essential hypertension, stable and chronic -Continue home dose of amlodipine 5 mg p.o. daily, losartan 50 mg p.o. b.i.d., and metoprolol tartrate 50 mg p.o. b.i.d. Hyperlipidemia, stable and chronic -continue home dose of atorvastatin 40 mg p.o. daily Hypothyroidism, stable and chronic -continue home dose of levothyroxine 88 mcg p.o. daily VTE prophylaxis: Wells risk score: 0 patient's INR is therapeutic and she will continue her present dose of warfarin Consults: none Patient is admitted under inpatient status with expected length of stay greater than 2 midnights due to severity of presenting symptoms, risk of adverse event, and complexity of treatment plan. FEN: saline lock , Heart healthy diet , BMP and magnesium in the am. Dispo: Probable discharge to home Code Status: DNR/DNI as discussed with patient COVID-19 COVID-19 status: Negative Result date/Date tested (Pos, Neg/Pending): 02/24/20 Quality VTE Deep Vein Thrombosis/Pulmonary Embolism Present on Admission: No
--- NOTE | 2020-02-25 03:33 | PC.NURSE ---
Addendum entered by Davis Khan R.N. 02/25/20 04:10: Pt's normal dose of warfarin 3.75 unavailable from pharmacy. GLENYS Donaldson notified w/orders to give a 1 time dose of 4mg and to request pt have meds brought from home. Pt states she will ask her son to bring in meds. Original Note: At approx. 0245, pt had an incident of nausea w/dry heaving and felt very shaky. VSS. Pt reports she had felt this way previously. Symptoms passed rapidly, pt currently sleeping peacefully.
[2020-02-25] MEDS: SODIUM CHLORIDE 0.9% 1,000 ML 150 ML IV ×3 (04:46→18:06)
[2020-02-25 05:32] LABS: Add Manual Diff / Slide Review NO; Basophils Absolute Auto 0 /uL (0-100); Basophils Percent Auto 0.3 % (0-2); Eosinophils Absolute Auto 0 /uL (0-450); Hematocrit 36.8 % (36-46); Hemoglobin 12.3 g/dL (12.0-16.0); Lymphocytes Absolute Auto 400 /uL (1100-4500); Lymphocytes Percent Auto 2.3 % (25-40); Mean Corpuscular HGB Conc 33.3 % (30-36); Mean Corpuscular Hemoglobin 31.9 PG (26-34); Mean Corpuscular Volume 95.9 fL (80-100); Monocytes Absolute Auto 600 /uL (0-900); Monocytes Percent Auto 3.5 % (3-14); Neutrophils Absolute Auto 15100 /uL (1500-7000); Neutrophils Percent Auto 93.9 % (50-75); Platelet Count 170 X10^3/uL (150-400); Red Blood Cell Count 3.84 X10^6/uL (4.0-5.2); Red Cell Distribution Width 14.5 % (11.6-14.8); White Blood Cell Count 16.1 X10^3/uL (4.5-11.0)
[2020-02-25 05:34] LABS: INR 2.6 (0.9-1.3); Prothrombin Time 30.1 SECONDS (10.1-12.7)
[2020-02-25 05:40] LABS: Blood Urea Nitrogen 23 mg/dL (7-17); Calcium 9.2 mg/dL (8.4-10.2); Carbon Dioxide 25 mmol/L (22-32); Chloride 94 mmol/L (98-107); Glucose 107 mg/dL (80-110); HEMOLYSIS 27 (0-50); Magnesium 1.7 mg/dL (1.6-2.3); Potassium 3.6 mmol/L (3.4-5.1); Sodium 125 mmol/L (137-145)
[2020-02-25] MEDS: LEVOTHYROXINE 88 MCG TABLET PO (06:37)
[2020-02-25] MEDS: LOSARTAN 50 MG TABLET PO ×2 (08:44→16:45)
[2020-02-25] MEDS: AMLODIPINE 5 MG TABLET PO (08:46)
[2020-02-25] MEDS: METOPROLOL IR 50 MG TABLET PO ×2 (08:46→16:46)
[2020-02-25 10:28] LABS: Acinetobacter baumannii Not Detected (Not Detect); Candida albicans Not Detected (Not Detect); Candida glabrata Not Detected (Not Detect); Candida krusei Not Detected (Not Detect); Candida parapsilosis Not Detected (Not Detect); Candida tropicalis Not Detected (Not Detect); E. coli Not Detected (Not Detect); Enterobacter cloacae complex Not Detected (Not Detect); Enterobacteriaceae species Not Detected (Not Detect); Enterococcus species Not Detected (Not Detect); Haemophilus influenzae Not Detected (Not Detect); KPC (carbapenem-resist gene) Not Detected (Not Detect); Listeria monocytogenes Not Detected (Not Detect); Methicillin-resistant gene Not Detected (Not Detect); Neisseria meningitidis Not Detected (Not Detect); Proteus species Not Detected (Not Detect); Pseudomonas aeruginosa Not Detected (Not Detect); Serratia marcescens Not Detected (Not Detect); Staphylococcus species Not Detected (Not Detect); Streptococcus agalactiae (Gr B Detected (Not Detect); Streptococcus pneumonia Not Detected (Not Detect); Streptococcus pyogenes (Gr A) Not Detected (Not Detect); Streptococcus species Detected (Not Detect); Vancomycin-rest genes A/B Not Detected (Not Detect)
--- NOTE | 2020-02-25 13:01 | CR.DCEVALNOT ---
Addendum entered by Micah Farfan 02/25/20 13:33: Spoke with Dr. Colin PT evaluation ordered DENTON PASTOR MSW Student Original Note: DCP ASSESSMENT: Patient is a 84 yo female who was admitted to the hospital on 02/24/20 for back pain and a dx of left lower lobe pneumonia with cardiomegaly. Patients primary payer is medicare and [facility] Her PCP is Dr. Richard at [facility]. Patient interview and chart review where completed this date. DENTON and DENTON Ceron met patient in her room. Patient presented alert and oriented x3 sitting in chair next to bed with call light. Educated and introduce the role of care management services, provided patient with contact information and annotated information on patients white board. Patient reported living alone and prior level of functioning as independent with ADL's including driving. She reported having a cane and FWW at home in case she is feeling weak however, she does deny use of devices, I have them if I need them. She did report she is feeling a weak being in the hospital, Patient could benefit from a PT consult while in the hospital. Strengths: patient reported having a good support system from her family one child lives within 5-blocks and the other within ten miles. PLAN: Can benefit from PT consult while in hospital. Recommend discharge home when medically stable, transportation will be provided by daughter per patient. DENTON Grant MSW Discharge Planning/Care Management Advanced directive, confirm from FAMILY Start: 02/24/20 23:03 Freq: Q24H Status: Active Protocol: Document 02/24/20 23:03 (Rec: 02/25/20 01:23 [id number]) Advance Directive, confirm on record Time 01:23 Person contacted patient Copy received No Advanced directive available on record No CM Discharge Assessment Start: 02/25/20 12:48 Freq: Status: Active Protocol: Document 02/25/20 12:52 AL (Rec: 02/25/20 13:00 AL [id number]) Discharge Planning Assessment Assigned Hot Metal Car Operator Micah Ceron Advance Directives? No Advance Directives on File No History Provided By Patient Has Patient been admitted in last 30 No days? Prior Living Arrangements House Household Members none Type of transporation used prior to Drives own vehicle admit Comment Daughter Bhumika will transport patient home from the hospital Independent with ADL's Yes Is patient alert and oriented? Yes Caregiver for Another No DME Already Rented / Owned FWW / Walker,Cane Comment Patient occassionally utilizes a cane or FWW for ambulation when she feel weak. Barriers to Discharge No Discharge Plan Home Whiteboard Updated in Patient Room with Yes name and ext. # of Hot Metal Car Operator Comment Home upon stable Review Status In Process
--- NOTE | 2020-02-25 13:17 | DI.US.S_ITS ---
PROCEDURE: US PERIPH VENOUS LOW EXTREM LT INDICATIONS: r/o DVT and bakers cyst TECHNIQUE: Real-time imaging, as well as color and pulse Doppler interrogation, were performed of the lower extremity deep veins from the inguinal ligament to the popliteal fossa. COMPARISON: None. FINDINGS: The common femoral, femoral and popliteal veins are normally compressible, and free of intraluminal thrombus. Color and pulse Doppler demonstrate normal phasic intraluminal flow. There is normal augmentation response to distal compression maneuver. IMPRESSION: No DVT in the left lower extremity. No Garcia's cyst. Dictated by: Pedro Pablo Yancey M.D. on 02/25/2020 at 14:26 Approved by: Pedro Pablo Yancey M.D. on 02/25/2020 at 14:26
--- NOTE | 2020-02-25 13:17 | PC.NURSE ---
Patient denies pain, lung sounds are clear, vitas sings are stable. Patient is on NS@150ml/hr. Patient is 95% on room air. PT reports that patient desats to the mid 80's when up walking. Tele: Afib [id number].
--- NOTE | 2020-02-25 13:26 | RT ---
RA challenge performed, Patient is 94% sitting on RA, patient desaturates with ambulation to 87%. Currently at rest patient is on RA, Patient given IS to help with deep breathing continue to monitor patient increased oxygen demand with ambulation.
--- NOTE | 2020-02-25 14:04 | P.PN_ITS ---
Subjective Subjective Date Patient Seen: 02/25/20 Interval history: The patient is an 84-year-old female who was admitted to the hospital with left lower lobe pneumonia. She desaturated in the emergency department and required 2 L of oxygen. This morning she is on room air. She denies any shortness of breath. She does continue to feel weak. Patient states when she got up to go to the bathroom her left knee was painful. She complains of pain behind the knee. Patient had 1 of 2 blood cultures that grew group B Streptococcus. She is being treated with azithromycin and ceftriaxone. Exam Vital Signs (past 8 hours): - 02/25/20 08:17 02/25/20 08:44 02/25/20 09:02 Temperature 97.6 F Pulse Rate 89 89 71 Respiratory Rate 14 16 Blood Pressure 114/64 114/64 Pulse Oximetry 94 94 02/25/20 11:13 02/25/20 12:10 Temperature 98.8 F Pulse Rate 82 71 Respiratory Rate 15 16 Blood Pressure 121/74 Pulse Oximetry 96 87 L Oxygen Delivery Method Room Air Oxygen Flow Rate 0 Narrative Exam Narrative: Pleasant elderly female resting comfortably in no obvious distress Lungs: Decreased breath sounds, occasional scattered rhonchi in the left base Cardiac exam: Irregularly irregular, normal S1-S2, 2/6 systolic ejection murmur Abdomen: Soft nontender nondistended, no hepatosplenomegaly Extremities: Bilateral knee scars from prior knee surgery noted. Left knee is palpated and nonpainful and nontender. There is no palpable masses in the popliteal fossa. There is minimal edema noted there is no redness of the lower extremities Objective Labs Result Diagrams: 02/25/20 05:00 02/25/20 05:00 Labs: Laboratory Results - last 24 hr 02/24/20 02/24/20 02/24/20 19:26 19:26 19:26 WBC RBC Hgb Hct MCV MCH MCHC RDW Plt Count Neut % (Auto) Lymph % (Auto) [place] % (Auto) Eos % (Auto) Baso % (Auto) Neut # (Auto) Lymph # (Auto) [place] # (Auto) Eos # (Auto) Baso # (Auto) PT INR D-Dimer 316 H Sodium Potassium Chloride Carbon Dioxide BUN Creatinine Estimated GFR BUN/Creatinine Ratio Glucose Lactate Calcium Magnesium Total Bilirubin AST ALT Alkaline Phosphatase Total Creatine Kinase CK-MB (CK-2) CK-MB (CK-2) Rel Index Troponin I NT-Pro-B Natriuret Pep 4800 H Total Protein Albumin Globulin Albumin/Globulin Ratio Lipase Procalcitonin 9.67 H A. baumannii (PCR) Chlamy pneumoniae PCR Adenovirus (PCR) B.parapertussis DNA PCR Karyn albicans (PCR) C. glabrata (PCR) C. krusei (PCR) C. parapsilosis (PCR) C. tropicalis (PCR) Coronavirus OC43 (PCR) Coronavirus HKU1 (PCR) Coronavirus 229E (PCR) SARS-CoV-2 (PCR) Coronavirus NL63 (PCR) Enterobacteriac sp PCR E. cloacae complex PCR Enterococcus sp PCR E. coli (PCR) H. influenzae (PCR) Human Metapneumovir PCR Influenza Type A (PCR) Influenza Type B (PCR) Klebsiella oxytoca PCR Klebsiella pneumoniae List. monocytogenes PCR M. pneumoniae (PCR) N. meningitidis (PCR) Parainfluenza 1 (PCR) Parainfluenza 2 (PCR) Parainfluenza 3 (PCR) Parainfluenza 4 (PCR) Proteus species (PCR) RSV (PCR) Entero/Rhino (PCR) Serratia marcescens PCR Staphylococcus sp PCR Staph aureus (PCR) mecA-Methicil Res Gene Streptococcus sp PCR Group A Strep (PCR) Strep agalactiae (PCR) Strep pneumoniae (PCR) P. aeruginosa (PCR) Tereso/B-Vanco Res Genes KPC-Carbap Res Gene PCR 02/24/20 02/24/20 02/24/20 19:26 19:26 19:26 WBC 22.2 H RBC 4.10 Hgb 13.4 Hct 39.2 MCV 95.6 MCH 32.5 MCHC 34.0 RDW 14.4 Plt Count 205 Neut % (Auto) 91.6 H Lymph % (Auto) 2.6 L [place] % (Auto) 5.6 Eos % (Auto) 0.0 L Baso % (Auto) 0.2 Neut # (Auto) 29780 H Lymph # (Auto) 600 L [place] # (Auto) 1200 H Eos # (Auto) 0 Baso # (Auto) 100 PT INR D-Dimer Sodium 126 L Potassium 3.8 Chloride 92 L Carbon Dioxide 25 BUN 21 H Creatinine 0.89 Estimated GFR > 60.0 BUN/Creatinine Ratio 23.6 H Glucose 134 H Lactate 1.9 Calcium 9.6 Magnesium Total Bilirubin 1.3 AST 47 H ALT 33 Alkaline Phosphatase 96 Total Creatine Kinase 121 CK-MB (CK-2) 1.09 CK-MB (CK-2) Rel Index 0.9 L Troponin I < 0.012 NT-Pro-B Natriuret Pep Total Protein 7.9 Albumin 4.4 Globulin 3.5 Albumin/Globulin Ratio 1.3 Lipase 96 Procalcitonin A. baumannii (PCR) Chlamy pneumoniae PCR Adenovirus (PCR) B.parapertussis DNA PCR Karyn albicans (PCR) C. glabrata (PCR) C. krusei (PCR) C. parapsilosis (PCR) C. tropicalis (PCR) Coronavirus OC43 (PCR) Coronavirus HKU1 (PCR) Coronavirus 229E (PCR) SARS-CoV-2 (PCR) Coronavirus NL63 (PCR) Enterobacteriac sp PCR E. cloacae complex PCR Enterococcus sp PCR E. coli (PCR) H. influenzae (PCR) Human Metapneumovir PCR Influenza Type A (PCR) Influenza Type B (PCR) Klebsiella oxytoca PCR Klebsiella pneumoniae List. monocytogenes PCR M. pneumoniae (PCR) N. meningitidis (PCR) Parainfluenza 1 (PCR) Parainfluenza 2 (PCR) Parainfluenza 3 (PCR) Parainfluenza 4 (PCR) Proteus species (PCR) RSV (PCR) Entero/Rhino (PCR) Serratia marcescens PCR Staphylococcus sp PCR Staph aureus (PCR) mecA-Methicil Res Gene Streptococcus sp PCR Group A Strep (PCR) Strep agalactiae (PCR) Strep pneumoniae (PCR) P. aeruginosa (PCR) Tereso/B-Vanco Res Genes KPC-Carbap Res Gene PCR 02/24/20 02/24/20 02/24/20 19:26 19:26 19:27 WBC RBC Hgb Hct MCV MCH MCHC RDW Plt Count Neut % (Auto) Lymph % (Auto) [place] % (Auto) Eos % (Auto) Baso % (Auto) Neut # (Auto) Lymph # (Auto) [place] # (Auto) Eos # (Auto) Baso # (Auto) PT 26.8 H INR 2.3 H D-Dimer Sodium Potassium Chloride Carbon Dioxide BUN Creatinine Estimated GFR BUN/Creatinine Ratio Glucose Lactate Calcium Magnesium 1.7 Total Bilirubin AST ALT Alkaline Phosphatase Total Creatine Kinase CK-MB (CK-2) CK-MB (CK-2) Rel Index Troponin I NT-Pro-B Natriuret Pep Total Protein Albumin Globulin Albumin/Globulin Ratio Lipase Procalcitonin A. baumannii (PCR) Chlamy pneumoniae PCR Adenovirus (PCR) B.parapertussis DNA PCR Karyn albicans (PCR) C. glabrata (PCR) C. krusei (PCR) C. parapsilosis (PCR) C. tropicalis (PCR) Coronavirus OC43 (PCR) Coronavirus HKU1 (PCR) Coronavirus 229E (PCR) SARS-CoV-2 (PCR) Negative Coronavirus NL63 (PCR) Enterobacteriac sp PCR E. cloacae complex PCR Enterococcus sp PCR E. coli (PCR) H. influenzae (PCR) Human Metapneumovir PCR Influenza Type A (PCR) Influenza Type B (PCR) Klebsiella oxytoca PCR Klebsiella pneumoniae List. monocytogenes PCR M. pneumoniae (PCR) N. meningitidis (PCR) Parainfluenza 1 (PCR) Parainfluenza 2 (PCR) Parainfluenza 3 (PCR) Parainfluenza 4 (PCR) Proteus species (PCR) RSV (PCR) Entero/Rhino (PCR) Serratia marcescens PCR Staphylococcus sp PCR Staph aureus (PCR) mecA-Methicil Res Gene Streptococcus sp PCR Group A Strep (PCR) Strep agalactiae (PCR) Strep pneumoniae (PCR) P. aeruginosa (PCR) Tereso/B-Vanco Res Genes KPC-Carbap Res Gene PCR 02/24/20 02/24/20 02/25/20 21:20 21:56 05:00 WBC RBC Hgb Hct MCV MCH MCHC RDW Plt Count Neut % (Auto) Lymph % (Auto) [place] % (Auto) Eos % (Auto) Baso % (Auto) Neut # (Auto) Lymph # (Auto) [place] # (Auto) Eos # (Auto) Baso # (Auto) PT 30.1 H INR 2.6 H D-Dimer Sodium Potassium Chloride Carbon Dioxide BUN Creatinine Estimated GFR BUN/Creatinine Ratio Glucose Lactate Calcium Magnesium Total Bilirubin AST ALT Alkaline Phosphatase Total Creatine Kinase CK-MB (CK-2) CK-MB (CK-2) Rel Index Troponin I NT-Pro-B Natriuret Pep Total Protein Albumin Globulin Albumin/Globulin Ratio Lipase Procalcitonin A. baumannii (PCR) Not detected Chlamy pneumoniae PCR Not detected Adenovirus (PCR) Not detected B.parapertussis DNA PCR Not detected Karyn albicans (PCR) Not detected C. glabrata (PCR) Not detected C. krusei (PCR) Not detected C. parapsilosis (PCR) Not detected C. tropicalis (PCR) Not detected Coronavirus OC43 (PCR) Not detected Coronavirus HKU1 (PCR) Not detected Coronavirus 229E (PCR) Not detected SARS-CoV-2 (PCR) Not detected Coronavirus NL63 (PCR) Not detected Enterobacteriac sp PCR Not detected E. cloacae complex PCR Not detected Enterococcus sp PCR Not detected E. coli (PCR) Not detected H. influenzae (PCR) Not detected Human Metapneumovir PCR Not detected Influenza Type A (PCR) Not detected Influenza Type B (PCR) Not detected Klebsiella oxytoca PCR Not detected Klebsiella pneumoniae Not detected List. monocytogenes PCR Not detected M. pneumoniae (PCR) Not detected N. meningitidis (PCR) Not detected Parainfluenza 1 (PCR) Not detected Parainfluenza 2 (PCR) Not detected Parainfluenza 3 (PCR) Not detected Parainfluenza 4 (PCR) Not detected Proteus species (PCR) Not detected RSV (PCR) Not detected Entero/Rhino (PCR) Not detected Serratia marcescens PCR Not detected Staphylococcus sp PCR Not detected Staph aureus (PCR) Not detected mecA-Methicil Res Gene Not detected Streptococcus sp PCR Detected H Group A Strep (PCR) Not detected Strep agalactiae (PCR) Detected H Strep pneumoniae (PCR) Not detected P. aeruginosa (PCR) Not detected Tereso/B-Vanco Res Genes Not detected KPC-Carbap Res Gene PCR Not detected 02/25/20 02/25/20 05:00 05:00 WBC 16.1 H RBC 3.84 L Hgb 12.3 Hct 36.8 MCV 95.9 MCH 31.9 MCHC 33.3 RDW 14.5 Plt Count 170 Neut % (Auto) 93.9 H Lymph % (Auto) 2.3 L [place] % (Auto) 3.5 Eos % (Auto) 0.0 L Baso % (Auto) 0.3 Neut # (Auto) 55363 H Lymph # (Auto) 400 L [place] # (Auto) 600 Eos # (Auto) 0 Baso # (Auto) 0 PT INR D-Dimer Sodium 125 L Potassium 3.6 Chloride 94 L Carbon Dioxide 25 BUN 23 H Creatinine 0.92 Estimated GFR 58.0 L BUN/Creatinine Ratio 25.0 H Glucose 107 Lactate Calcium 9.2 Magnesium 1.7 Total Bilirubin AST ALT Alkaline Phosphatase Total Creatine Kinase CK-MB (CK-2) CK-MB (CK-2) Rel Index Troponin I NT-Pro-B Natriuret Pep Total Protein Albumin Globulin Albumin/Globulin Ratio Lipase Procalcitonin A. baumannii (PCR) Chlamy pneumoniae PCR Adenovirus (PCR) B.parapertussis DNA PCR Karyn albicans (PCR) C. glabrata (PCR) C. krusei (PCR) C. parapsilosis (PCR) C. tropicalis (PCR) Coronavirus OC43 (PCR) Coronavirus HKU1 (PCR) Coronavirus 229E (PCR) SARS-CoV-2 (PCR) Coronavirus NL63 (PCR) Enterobacteriac sp PCR E. cloacae complex PCR Enterococcus sp PCR E. coli (PCR) H. influenzae (PCR) Human Metapneumovir PCR Influenza Type A (PCR) Influenza Type B (PCR) Klebsiella oxytoca PCR Klebsiella pneumoniae List. monocytogenes PCR M. pneumoniae (PCR) N. meningitidis (PCR) Parainfluenza 1 (PCR) Parainfluenza 2 (PCR) Parainfluenza 3 (PCR) Parainfluenza 4 (PCR) Proteus species (PCR) RSV (PCR) Entero/Rhino (PCR) Serratia marcescens PCR Staphylococcus sp PCR Staph aureus (PCR) mecA-Methicil Res Gene Streptococcus sp PCR Group A Strep (PCR) Strep agalactiae (PCR) Strep pneumoniae (PCR) P. aeruginosa (PCR) Tereso/B-Vanco Res Genes KPC-Carbap Res Gene PCR PFSH Medical History Atrial fibrillation, chronic Essential hypertension Hyperlipidemia Hypothyroid Social History household members: none Smoking Status: Former smoker alcohol intake: former Assessment & Plan Assessment & Plan narrative: Left lower lobe pneumonia, acute, present on admission -patient was started on IV ceftriaxone and azithryomycin -blood cultures positive for group B Streptococcus, as such will discontinue azithromycin -will await final culture and sensitivity -patient is afebrile, and no longer hypoxic, appears to be making excellent improvement Paroxysmal atrial fibrillation, chronic present on admission -telemetry -INR is therapeutic at 2.3 -she takes a alternating dose of warfarin and will need to bring her pills in to arrive at the correct dose. She would have normally taken 3.75 mg tonight but the pharmacy did not have doses that could be divided accurately to that amount so she will receive a 1 time dose of warfarin 4 mg tonight. She will resume her normal dosing when her daughter brings in her pills. -daily PT INRs -She receives primary care at [facility], unknown when and if she has had an echo done recently. -will continue metoprolol for rate control Essential hypertension, stable and chronic -Continue home dose of amlodipine 5 mg p.o. daily, losartan 50 mg p.o. b.i.d., and metoprolol tartrate 50 mg p.o. b.i.d. Hyperlipidemia, stable and chronic -continue home dose of atorvastatin 40 mg p.o. daily Hypothyroidism, stable and chronic -continue home dose of levothyroxine 88 mcg p.o. daily Left knee pain -question Garcia cyst versus DJD versus other -will obtain a duplex ultrasound of the left lower extremity to rule out DVT and rule out a Garcia cyst Quality VTE Deep Vein Thrombosis/Pulmonary Embolism Present on Admission: No
[2020-02-25] MEDS: PANTOPRAZOLE 20 MG TABLET PO (16:45)
[2020-02-25] MEDS: CEFTRIAXONE 1 GM/50 ML FROZ.PIGGY IV (21:19)
[2020-02-26] VITALS (7 sets, daily range): BP systolic 129–152; BP diastolic 72–91; PULSE 93–105; RESP 14–20; TEMP 36.2–37.4; O2SAT 93–95
[2020-02-26] MEDS: SODIUM CHLORIDE 0.9% 1,000 ML 100 ML IV ×2 (01:43→12:18)
[2020-02-26 05:49] LABS: INR 2.1 (0.9-1.3); Prothrombin Time 23.9 SECONDS (10.1-12.7)
[2020-02-26 05:56] LABS: Add Manual Diff / Slide Review NO; Basophils Absolute Auto 0 /uL (0-100); Basophils Percent Auto 0.2 % (0-2); Eosinophils Absolute Auto 0 /uL (0-450); Eosinophils Percent Auto 0.1 % (2-4); Hematocrit 39.1 % (36-46); Hemoglobin 13.4 g/dL (12.0-16.0); Lymphocytes Absolute Auto 1000 /uL (1100-4500); Mean Corpuscular HGB Conc 34.2 % (30-36); Mean Corpuscular Volume 96.6 fL (80-100); Monocytes Absolute Auto 1000 /uL (0-900); Monocytes Percent Auto 6.2 % (3-14); Neutrophils Absolute Auto 14400 /uL (1500-7000); Neutrophils Percent Auto 87.5 % (50-75); Platelet Count 145 X10^3/uL (150-400); Red Blood Cell Count 4.05 X10^6/uL (4.0-5.2); Red Cell Distribution Width 14.4 % (11.6-14.8); White Blood Cell Count 16.5 X10^3/uL (4.5-11.0)
[2020-02-26 05:58] LABS: BUN Creatinine Ratio 24.6 (6-22); Blood Urea Nitrogen 17 mg/dL (7-17); Calcium 8.8 mg/dL (8.4-10.2); Carbon Dioxide 25 mmol/L (22-32); Chloride 97 mmol/L (98-107); Estimated Glomerular Filt Rate > 60.0 mL/min (>60); Glucose 97 mg/dL (80-110); HEMOLYSIS 23 (0-50); Potassium 3.7 mmol/L (3.4-5.1); Sodium 127 mmol/L (137-145)
[2020-02-26] MEDS: LEVOTHYROXINE 88 MCG TABLET PO (05:58)
[2020-02-26] MEDS: CALCIUM CARBONATE 500 MG TAB 1000 MG PO ×3 (06:00→21:11)
[2020-02-26] MEDS: METOPROLOL IR 50 MG TABLET PO ×2 (08:24→17:07)
[2020-02-26] MEDS: AMLODIPINE 5 MG TABLET PO (08:24)
[2020-02-26] MEDS: LOSARTAN 50 MG TABLET PO ×2 (08:24→17:07)
[2020-02-26 09:07] LABS: Procalcitonin 4.45 ng/mL (<0.5)
--- NOTE | 2020-02-26 10:16 | PC.NURSE ---
Assess- Patient up to the commode with a one person assist and walker. She was able to void and have a small formed bowel movement. She does get sob with exertion, she is on room air and doing well. Patient can also be a bit incontinent of urine. BS are CTA.
--- NOTE | 2020-02-26 11:15 | PT.IIE ---
Current Diagnoses Pneumonia, unspecified organism (02/24/20) Medical History (Last Reviewed 02/25/20 @ 03:32 by GLENYS Culp) Atrial fibrillation, chronic Essential hypertension Hyperlipidemia Hypothyroid Physical Therapy Inpatient Evaluation/Re-Eval M1 PT/OT-IP Prior Functional Status Start: 02/26/20 09:07 Freq: NEEDED Status: Active Protocol: Document 02/26/20 11:13 AW (Rec: 02/26/20 12:49 AW [id number]) Medical Review Prior Functional Status Medical History Reviewed Yes Communication OMAHA with hearing aids Mobility and Gait Pt reports independent household mobility but is limited in the community to <1 block due to knee and hip pain. Pt denies falls in the past one year. Activities of Daily Living and IADL's Independent with all I/ADL's Prior Functional Level (Other details) Pt reports intermittent back pain along the right thoracic spine which is worse with deep inhalation. 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 Pt reports intermittent swelling of LLE which is treated medically but she does not wear any compression. Social History Household Members none Living Arrangements House Number of Floors (Floors) One Floor Number of Stairs To Enter/Railing? 2 PRINCESS with wide bilateral rails at the front entrance. Home Environment Standard Height Toilet,Tub/ Shower Home Equipment Front Wheel Walker,Straight Cane,Raised Toilet Seat Without Armrests,Hand Held Shower Employment Status Retired Additional Social History Comment Pt's bathtub is tall. In the bathroom, there is a cupboard on the right side of the toilet which she can use to assist with standing. Pt's son and [id number] live within 6 blocks of her house. Pt reports her DIL will stay with her at discharge to provide assist. DIL's mother is a private caregiver and will also be available to assist prn. M2 PT-IP Current Condition Start: 02/26/20 09:07 Freq: NEEDED Status: Active Protocol: Document 02/26/20 11:13 AW (Rec: 02/26/20 12:49 AW [id number]) Physical Therapy Current Condition Current Condition Evaluation Date 02/26/20 Treatment Diagnosis LLL pneumonia; impaired mobility Onset Date 02/24/20 M3 PT-IP Subjective Start: 02/26/20 09:07 Freq: NEEDED Status: Active Protocol: Document 02/26/20 11:13 AW (Rec: 02/26/20 12:49 AW [id number]) Subjective Physical Therapy Visit Type Type Initial Evaluation Visit Start Time 10:43 Visit Stop Time 11:13 Total Visit Minutes 30 Number of G[employer] OPERATOR Visits 0 Physical Therapy Visit Comments Patient Comments Pt is willing to participate with PT Patient Goals Return home with family assist . Pt is open to therapy. Therapy Pain Assessment Pain When Pain Assessed During Mobility Pain Present Pain Present Pain Reported Location back Scale Used not quantified Description Sharp Pain Management Techniques Distraction,Re-positioning M4 PT-IP Mobility and Gait Start: 02/26/20 09:07 Freq: NEEDED Status: Active Protocol: Document 02/26/20 11:13 AW (Rec: 02/26/20 12:49 AW [id number]) PT-Bed Mobility Assessment Supine to Sit Supine to Sit Minimal Assistance,1 Person Assistance,Head of Bed Elevated,Bedrails Sit to Supine Sit to Supine Contact Guard Assistance,1 Person Assistance Scooting Scooting to Edge of Bed Standby Assistance PT-Transfer Assessment Sit to and From Stand Sit to and from Stand Contact Guard Assistance,1 Person Assistance,Use of Upper Extremities Equipment Transfer Assistive Device Gait Belt,Front Wheeled Walker Orthotic/Prosthetic Devices or Brace: No Transfers Transfer Destination Bed Transfer Technique Stand Step Pivot Transfer Ability Level of Assist Contact Guard Assistance,1 Person Assistance Comments Mobility Comments Pt was lying in the bed as PT arrived and she agreed to mobilize. With HOB at 10 degrees, pt required min assist to sit up on the left side of the bed. Work of breathing increased slightly but pulse oximeter was not working. Pt was able to stand with FWW CGA and ambulated 60 feet in the halls before returning to the room and requesting return to bed. She completed sit to supine CGA. Pt was positioned on the bed with call light and all needs in reach, bed alarm armed for safety. Gait Assessment Gait Gait Assistance Required: Contact Guard Assist Distance (Feet) 60 Assistive Devices Assistive Device Gait Belt,Front Wheeled Walker Orthotic/Prosthetic Devices or Brace: No Gait Deviations General Gait Pattern Antalgic,Ataxic,Decreased Feet Clearance,Flexed Trunk Factors Limiting Gait Function Factors Limiting Gait Function Decreased Activity Tolerance, Decreased Sensation,Decreased Strength,Pain,Poor Balance Comments Gait Comments Pt's standing posture was significantly flexed as pt reported right upper back pain with deep breathing. RN informed. Stair Climbing Assessment Comments Stair Climbing Comments Not assessed. PT-Balance Assessment Sitting Balance and Reactions Static Sitting Balance Ability Good Dynamic Sitting Balance Ability Good Standing Balance and Reactions Static Standing Balance Ability Good Dynamic Standing Balance Ability Fair Device Used FWW M5 PT-IP Objective Assessments Start: 02/26/20 09:07 Freq: NEEDED Status: Active Protocol: Document 02/26/20 11:13 AW (Rec: 02/26/20 12:49 AW [id number]) Orientation Orientation/Cognition Level of Alertness Alert Orientation Name,Day of Week,Place, Situation Language Function Ability Hard of Hearing Safety Awareness Decreased Safety Awareness Memory Description No Deficits Noted Gross Range of Motion Lower Extremity ROM Assessment Within Functional Limits Strength Lower Extremity Strength Assessment Bilaterally Impaired Hip 3+/5 Knee 4+/5 Ankle 4+/5 Sensation Assessment Sensation Gross Sensation Right LE Impaired,Left LE Impaired Light Touch Impaired Comments Sensation Comments Pt reports chronically dull light touch sensation in bilateral LE from feet up to mid-calf. Muscle Tone Muscle Tone WNL Yes M6 PT-IP Treatment Start: 02/26/20 09:07 Freq: NEEDED Status: Active Protocol: Document 02/26/20 11:13 AW (Rec: 02/26/20 12:49 AW [id number]) Physical Therapy Treatment Education Education Provided Safety Other Treatments Other Treatment Performed Provided education on role of PT, plan of care, benefits of regular mobility, and safe use of FWW. M7 PT-IP Assessment and Plan Start: 02/26/20 09:07 Freq: NEEDED Status: Active Protocol: Document 02/26/20 11:13 AW (Rec: 02/26/20 12:49 AW [id number]) PT Summary Assessment and Plan Potential Rehabilitation Potential Good Status of Condition at Evaluation Evolving Summary Impairments Pain,ROM,Strength,Balance, Sensation,Bed Mobility, Transfers,Gait,Activity Tolerance Assessment Summary Ana is an 84yo woman with admitting diagnosis of LLL pneumonia. She lives alone and is independent in all regards at baseline though does admit to a limit of <1 block for ambulation due to left knee pain. On evaluation, pt required CGA to min assist for all mobility with limitations due to respiratory distress and decreased activity tolerance. She has planned for her daughter in law to stay with her at discharge. Pt would benefit from home health therapy to address strength and mobility deficits. Goals Bed Mobility Goal Standby Assistance Transfer Goal Standby Assistance,Front Wheeled Walker Gait Goal Standby Assistance,Front Wheel Walker Gait Distance 150 Other Goals - up/down 2 steps with unilateral rail CGA - improve ambulation to 100 feet with SPC SBA Days to Meet Goals 5 Frequency of Treatment Frequency Of Treatment Once a Day Treatment Plan Physical Therapy Treatment Plan Bed Mobility Training,Transfer Training,Gait Training, Therapeutic Exercise,Balance Retraining,Discharge Planning, Hot or Cold Pack,Neuromuscular Re-ed,Manual Therapy Other Recommendations and Next Treatment portable SpO2 monitor; bed Focus mobility; progress gait with FWW and/or assess gait with SPC depending on tolerance Recommendations To Nursing Amount of Assist Needed 1 Person Assist Discharge Recommendations PT Discharge Recommendations Home with Assistance,Home Health Transportation Needs at Discharge Private Vehicle
--- NOTE | 2020-02-26 12:06 | DI.ECHO.S_ITS ---
[facility] +---------+ : : [address] : [place] [place] : : : : [id number] : : : : Phone: [phone]+ Echocardiogram Report + + :Name: RAGHAV PATEL Study Date: 02/27/2020 Height: 68 in : :[facility] ReadingLocation: Weight: 160 lb : : Gender: Female BSA: 1.9 m2 : :: 1935 Age: 84 yrs BP: 135/72 mmHg: :Reason For Study: RULE OUT BACTEREMIA : :Ordering Physician: MODESTO, : :MANDI Performed By: Alicia Degroot : :Referring: MANDI SALVADOR : + + Interpretation Summary The left ventricle is normal in size and wall thickness. Left ventricular systolic function appears normal without focal wall motion abnormalities. The ejection fraction is estimated to be 55-60%. Diastolic function could not be accurately assessed due to atrial fibrillation. The right ventricle is normal in size and function. The right ventricular systolic pressure is estimated to be at least 48 mmHg based on an estimated right atrial pressure of 8 mm Hg. Both atria are severely dilated. There is mild to moderate mitral annular calcification. There is moderate to severe mitral regurgitation. The aortic valve is mildly calcified. There is no aortic valve stenosis. There is moderate to severe tricuspid regurgitation. The ascending aorta is mildly enlarged. Procedure: A two-dimensional transthoracic echocardiogram with color flow and Doppler was performed. The study quality was technically adequate. There is no prior echocardiogram noted for this patient. The patient was in sinus tachycardia with heart rates between 98-112 bpm during the exam. Left Ventricle: The left ventricle is normal in size and wall thickness. Left ventricular systolic function appears normal without focal wall motion abnormalities. The ejection fraction is estimated to be 55-60%. Diastolic function could not be accurately assessed due to atrial fibrillation. Right Ventricle: The right ventricle is normal in size and function. Atria: Both atria are severely dilated. There is no Doppler evidence for an interatrial shunt. Mitral Valve: The mitral valve leaflets are mildly calcified. There is mild to moderate mitral annular calcification. There is moderate to severe mitral regurgitation. Aortic Valve: The aortic valve is trileaflet. The aortic valve opens well. The aortic valve is mildly calcified. There is no aortic valve stenosis. No aortic regurgitation is present. Tricuspid Valve: The tricuspid annulus is dilated. The tricuspid valve leaflets are thin and pliable. There is moderate to severe tricuspid regurgitation. The right ventricular systolic pressure is estimated to be at least 48 mmHg based on an estimated right atrial pressure of 8 mm Hg. Pulmonic Valve: The pulmonic valve leaflets are thin and pliable; valve motion is normal. There is no pulmonic valvular regurgitation. Great Vessels: The aortic root is normal size. The ascending aorta is mildly enlarged. The IVC is of normal diameter and collapses less than 50% with a sniff. This suggests a right atrial pressure of 8 mm Hg. Pericardium/ Pleura There is no pericardial effusion. There is no pleural effusion. MMode/2D Measurements & Calculations LVIDd: 4.5 cm LVOT diam: 1.9 cm LVIDs: 3.5 cm Ao root diam: 2.9 cm FS: 21.5 % asc Aorta Diam: 3.4 cm EPSS: 0.72 cm Ao Arch Diam (Prox Trans): 3.2 cm IVSd: 0.81 cm LVPWd: 0.95 cm LV rangel. diameter/BSA (cm/m^2): 2.4 LV sys. diameter/BSA (cm/m^2): 1.9 LA A2 area: 42.4 cm2 RA long axis: 7.5 cm LA A4 area: 43.7 cm2 RA area: 32.8 cm2 LA length (vol): 7.7 cm RA vol: 122.3 ml LA vol: 203.3 ml RA : 65.8 ml/m2 LA vol index: 109.4 ml/m2 IVC diam: 1.8 cm RVD1 (basal): 3.6 cm TAPSE: 1.7 cm Doppler Measurements & Calculations Ao V2 max: 167.7 cm/sec LVOT Max Ovidio: 92.4 cm/sec Ao V2 mean: 114.6 cm/sec LV V1 max P.4 mmHg Ao max P.3 mmHg LV V1 VTI: 16.2 cm Ao mean P.1 mmHg ANITA(I,D): 1.6 cm2 Ao V2 VTI: 27.5 cm ANITA(V,D): 1.5 cm2 sev ratio: 0.59 ANITA indexed to BSA (cm^2/m^2): 0.88 MV E max ovidio: 130.0 cm/sec TR max ovidio: 317.9 cm/sec MV A max ovidio: 0.92 cm/sec TR max P.4 mmHg MV E/A: 141.3 PA V2 max: 70.0 cm/sec Med Peak E' Ovidio: 6.3 cm/sec PA V2 mean: 46.4 cm/sec E/E' med: 20.6 PA mean P.99 mmHg Lat Peak E' Ovidio: 12.5 cm/sec PA pr(Accel): 49.9 mmHg E/E' lat: 10.4 E/e' average: 15.5 MV dec time: 0.19 sec MR ERO: 0.33 cm2 MR PISA: 6.0 cm2 SV(LVOT): 45.0 ml MR flow rate: 185.7 cm3/sec MR PISA radius: 0.98 cm Reading Physician:01:23 PM
--- NOTE | 2020-02-26 16:22 | P.PN_ITS ---
Subjective Subjective Date Patient Seen: 02/26/20 Interval history: Patient is 84-year-old female admitted with left lung pneumonia. Blood cultures from admission grew group B strep. Patient states she has slight cough but feels better. She has some upper back pain which is stable. Exam Vital Signs (past 8 hours): - 02/26/20 12:38 02/26/20 15:20 Temperature 97.1 F L 99.0 F Pulse Rate 105 H 97 H Respiratory Rate 14 17 Blood Pressure 152/91 H 137/83 Pulse Oximetry 95 94 Oxygen Delivery Method Room Air Oxygen Flow Rate 0 Narrative Exam Narrative: General: Alert elderly female no acute distress Lungs: Clear to auscultation Heart: Irregularly irregular Abdomen: Soft and nontender Extremities: No distal edema Objective Labs Result Diagrams: 02/26/20 05:25 02/26/20 05:25 Labs: Laboratory Results - last 24 hr 02/26/20 02/26/20 02/26/20 05:25 05:25 05:25 WBC 16.5 H RBC 4.05 Hgb 13.4 Hct 39.1 MCV 96.6 MCH 33.0 MCHC 34.2 RDW 14.4 Plt Count 145 L Neut % (Auto) 87.5 H Lymph % (Auto) 6.0 L [place] % (Auto) 6.2 Eos % (Auto) 0.1 L Baso % (Auto) 0.2 Neut # (Auto) 02553 H Lymph # (Auto) 1000 L [place] # (Auto) 1000 H Eos # (Auto) 0 Baso # (Auto) 0 PT 23.9 H D INR 2.1 H Sodium 127 L Potassium 3.7 Chloride 97 L Carbon Dioxide 25 BUN 17 Creatinine 0.69 Estimated GFR > 60.0 BUN/Creatinine Ratio 24.6 H Glucose 97 Calcium 8.8 Procalcitonin 02/26/20 08:05 WBC RBC Hgb Hct MCV MCH MCHC RDW Plt Count Neut % (Auto) Lymph % (Auto) [place] % (Auto) Eos % (Auto) Baso % (Auto) Neut # (Auto) Lymph # (Auto) [place] # (Auto) Eos # (Auto) Baso # (Auto) PT INR Sodium Potassium Chloride Carbon Dioxide BUN Creatinine Estimated GFR BUN/Creatinine Ratio Glucose Calcium Procalcitonin 4.45 H [facility] Medical History Atrial fibrillation, chronic Essential hypertension Hyperlipidemia Hypothyroid Social History household members: none Smoking Status: Former smoker alcohol intake: former Assessment & Plan Assessment & Plan narrative: Left lower lobe pneumonia, acute, present on admission -clinically improving, decrease in WBC -patient was started on IV ceftriaxone and azithryomycin -blood cultures positive for group B Streptococcus, as such azithromycin was discontinued -patient is afebrile, and no longer hypoxic, appears to be making excellent improvement Group B strep bacteremia -continue Rocephin 2 g IV daily -patient will need 2 weeks of IV antibiotics -PICC line -echo, rule out SBE Paroxysmal atrial fibrillation, chronic present on admission -telemetry -INR is therapeutic at 2.1 -continue warfarin per current dosing -will continue metoprolol for rate control Essential hypertension, stable and chronic -Continue home dose of amlodipine 5 mg p.o. daily, losartan 50 mg p.o. b.i.d., and metoprolol tartrate 50 mg p.o. b.i.d. Hyperlipidemia, stable and chronic -continue home dose of atorvastatin 40 mg p.o. daily Hypothyroidism, stable and chronic -continue home dose of levothyroxine 88 mcg p.o. daily Left knee pain -duplex ultrasound no DVT, no Garcia cyst Patient with improving course. She will likely need [facility] facility to complete her 2 week IV antibiotic course. Quality VTE Deep Vein Thrombosis/Pulmonary Embolism Present on Admission: No
[2020-02-26] MEDS: ATORVASTATIN 20 MG TABLET 40 MG PO (17:07)
[2020-02-26] MEDS: PANTOPRAZOLE 20 MG TABLET PO (17:07)
[2020-02-26] MEDS: WARFARIN 5 MG TABLET PO (17:07)
[2020-02-26] MEDS: CEFTRIAXONE 2 GM/50 ML FROZ.PIGGY IV (20:47)
[2020-02-26] MEDS: ACETAMINOPHEN 325 MG TABLET 650 MG PO (20:55)
[2020-02-27] VITALS: BP 128/79; PULSE 90; RESP 18; TEMP 36.6; O2SAT 93
[2020-02-27] MEDS: SODIUM CHLORIDE 0.9% 1,000 ML 100 ML IV (00:28)
[2020-02-27 04:11] VITALS: BP 140/80; PULSE 93; RESP 17; TEMP 37; O2SAT 92
[2020-02-27 06:18] LABS: INR 1.7 (0.9-1.3); Prothrombin Time 19.6 SECONDS (10.1-12.7)
[2020-02-27 07:56] VITALS: BP 154/93; PULSE 104; RESP 16; TEMP 37.2; O2SAT 94
[2020-02-27] MEDS: CALCIUM CARBONATE 500 MG TAB 1000 MG PO (09:01)
[2020-02-27] MEDS: AMLODIPINE 5 MG TABLET PO (09:01)
[2020-02-27] MEDS: FUROSEMIDE 40 MG/4 ML VIAL IV (09:01)
[2020-02-27] MEDS: METOPROLOL IR 50 MG TABLET PO (09:01)
[2020-02-27] MEDS: LEVOTHYROXINE 88 MCG TABLET PO (09:02)
[2020-02-27] MEDS: LOSARTAN 50 MG TABLET PO (09:02)
--- NOTE | 2020-02-27 10:47 | PC.NURSE ---
Addendum entered by Carmel Quinn R.N. 02/27/20 14:49: Patient had 40mg of iv lasix given and she has put out around 4300cc of clear urine. She is going to go home later today. Voices no concerns at this time. Original Note: Patient given lasix her output is well over 1700. She just voided 1000cc. Up with 1PA and states that she is having some discomfort to the back of her knees, not needing pain medication at this time. Resting comfortably. LS cta, she is on 02 and sats are in the mid 90s. Just up to the commode again, otherwise voices no concerns.
--- NOTE | 2020-02-27 12:42 | PT.IPTN ---
Current Diagnoses Pneumonia, unspecified organism (02/24/20) Physical Therapy Treatment Note M2 PT-IP Current Condition Start: 02/26/20 09:07 Freq: NEEDED Status: Active Protocol: Document 02/26/20 11:13 AW (Rec: 02/26/20 12:49 AW [id number]) Physical Therapy Current Condition Current Condition Evaluation Date 02/26/20 Treatment Diagnosis LLL pneumonia; impaired mobility Onset Date 02/24/20 M3 PT-IP Subjective Start: 02/26/20 09:07 Freq: NEEDED Status: Active Protocol: Document 02/27/20 12:30 AW (Rec: 02/27/20 12:42 AW [email or web address]) Subjective Physical Therapy Visit Type Type Treatment Note Visit Start Time 12:10 Visit Stop Time 12:25 Total Visit Minutes 15 Physical Therapy Visit Comments Patient Comments Pt is willing to participate with PT Therapy Pain Assessment Pain When Pain Assessed During Mobility Pain Present Pain Present Pain Reported Location back Scale Used not quantified Pain Management Techniques Distraction,Re-positioning M4 PT-IP Mobility and Gait Start: 02/26/20 09:07 Freq: NEEDED Status: Active Protocol: Document 02/27/20 12:30 AW (Rec: 02/27/20 12:42 AW [email or web address]) PT-Transfer Assessment Sit to and From Stand Sit to and from Stand Standby Assistance,Use of Upper Extremities Equipment Transfer Assistive Device Gait Belt,Front Wheeled Walker Orthotic/Prosthetic Devices or Brace: No Transfers Transfer Destination Chair,Bedside Commode Transfer Technique Stand Step Pivot Transfer Ability Level of Assist Contact Guard Assistance,1 Person Assistance Comments Mobility Comments Pt was sitting up in the chair as PT arrived. She stood from the chair SBA and used the FWW to ambulate in the halls with no increase in WOB today. After completing stairs assessment, pt returned to the room and transferred to [facility], preferring its taller height vs the toilet. She voided and then transferred to the chair CGA using FWW. Pt was positioned on the chair with warm blankets, lunch tray and call light in reach. Gait Assessment Gait Gait Assistance Required: Standby Assistance Distance (Feet) 150 Assistive Devices Assistive Device Gait Belt,Front Wheeled Walker Orthotic/Prosthetic Devices or Brace: No Gait Deviations General Gait Pattern Antalgic,Ataxic,Decreased Feet Clearance,Flexed Trunk Factors Limiting Gait Function Factors Limiting Gait Function Decreased Activity Tolerance, Decreased Sensation,Decreased Strength,Pain,Poor Balance Comments Gait Comments Pt able to correct flexed posture in response to cues. She was not ready to trial ambulation with SPC at this time, sensing that FWW was the right device at this time. Stair Climbing Assessment Evaluation Level of Assist On Stairs Contact Guard Assistance Devices Stair Climbing Assistive Devices Left Railing,Right Railing Technique/Endurance Stair Climbing Direction Ascend and Descend Stair Climbing Technique Step to Step Number of Steps Climbed 3 Stair Climbing Set # Repetitions (reps) 1 Comments Stair Climbing Comments Pt completed one set of stairs using B rails to ascend and R rail only descending with CGA . PT-Balance Assessment Sitting Balance and Reactions Static Sitting Balance Ability Good Dynamic Sitting Balance Ability Good Standing Balance and Reactions Static Standing Balance Ability Good Dynamic Standing Balance Ability Fair Device Used FWW M5 PT-IP Objective Assessments Start: 02/26/20 09:07 Freq: NEEDED Status: Active Protocol: Document 02/26/20 11:13 AW (Rec: 02/26/20 12:49 AW [id number]) Orientation Orientation/Cognition Level of Alertness Alert Orientation Name,Day of Week,Place, Situation Language Function Ability Hard of Hearing Safety Awareness Decreased Safety Awareness Memory Description No Deficits Noted Gross Range of Motion Lower Extremity ROM Assessment Within Functional Limits Strength Lower Extremity Strength Assessment Bilaterally Impaired Hip 3+/5 Knee 4+/5 Ankle 4+/5 Sensation Assessment Sensation Gross Sensation Right LE Impaired,Left LE Impaired Light Touch Impaired Comments Sensation Comments Pt reports chronically dull light touch sensation in bilateral LE from feet up to mid-calf. Muscle Tone Muscle Tone WNL Yes M6 PT-IP Treatment Start: 02/26/20 09:07 Freq: NEEDED Status: Active Protocol: Document 02/27/20 12:30 AW (Rec: 02/27/20 12:42 AW [email or web address]) Physical Therapy Treatment Education Education Provided Safety Other Treatments Other Treatment Performed Discussed benefits of FWW vs SPC with pt agreeing FWW is the right device for her at this time. M7 PT-IP Assessment and Plan Start: 02/26/20 09:07 Freq: NEEDED Status: Active Protocol: Document 02/27/20 12:30 AW (Rec: 02/27/20 12:42 AW [email or web address]) PT Summary Assessment and Plan Potential Rehabilitation Potential Good Status of Condition at Evaluation Stable Summary Impairments Pain,ROM,Strength,Balance, Sensation,Bed Mobility, Transfers,Gait,Activity Tolerance Progress Towards Goals Progressing Toward Goals Assessment Summary Ana is progressing toward goals and shows decreased work of breathing at this session. She states she is working with ~20% of her normal energy and continues to feel quite fatigued. Pt will benefit from home health PT at discharge to progress her mobility and strength. Goals Bed Mobility Goal Standby Assistance Transfer Goal Standby Assistance,Front Wheeled Walker Gait Goal Standby Assistance,Front Wheel Walker Gait Distance 150 Other Goals - up/down 2 steps with unilateral rail CGA - improve ambulation to 100 feet with SPC SBA Days to Meet Goals 4 Frequency of Treatment Frequency Of Treatment Once a Day Treatment Plan Physical Therapy Treatment Plan Bed Mobility Training,Transfer Training,Gait Training, Therapeutic Exercise,Balance Retraining,Discharge Planning, Hot or Cold Pack,Neuromuscular Re-ed,Manual Therapy Other Recommendations and Next Treatment portable SpO2 monitor; bed Focus mobility; progress gait with FWW and/or assess gait with SPC depending on tolerance Recommendations To Nursing Amount of Assist Needed Standby Assistance,1 Person Assist Discharge Recommendations PT Discharge Recommendations Home with Assistance,Home Health Transportation Needs at Discharge Private Vehicle
[2020-02-27 13:07] VITALS: BP 151/71; PULSE 92; RESP 17; TEMP 36.4; O2SAT 93
[2020-02-27] MEDS: CEFTRIAXONE 2 GM/50 ML FROZ.PIGGY IV (14:19)
--- NOTE | 2020-02-27 14:28 | PM.DS.1 ---
History of Present Illness History of Present Illness Chief complaint: back pain Narrative: Ana Hoffman is a pleasant 84-year-old female who initially presented to the emergency department with upper back pain. She said it was hard to breathe started around 2 this morning and she had sore and achy joints. She states that she was quite shaky and attempted to take her temperature and the 1st 1 it was 99.10 and then at 10:00 a.m. it was 98.3 she has had mid epigastric pain nonproductive cough she threw up 1/tonight which produced a small amount of vomit almost to her like a dry heave she has also had loose stools for the last several days. She was very concerned that she had COVID. She also complained of nasal congestion which is chronic, she wears hearing aids so she is a little bit hard of hearing, breathing is painful but not difficult, and she was concerned about pain in the back of her knee that also started at the same time. The patient has a history of paroxysmal atrial fibrillation anticoagulated on warfarin, hypertension, coronary artery disease, hyperlipidemia and hypothyroidism. Chest x-ray done in the ED indicated left lower lobe pneumonia with cardiomegaly. His of very high white count of 22.2, RBC 4.10, hemoglobin 13.4, hematocrit 39.2, platelet count of 205, she has a left shift with a neutrophil count of 20,000, she is therapeutic with an INR of 2.3, sodium is 126, potassium 3.8, chloride 92, bicarb 25, BUN 21, creatinine 0.89 with a GFR of 6 greater than 60, glucose 134, lactate 1.9, magnesium 1.7, AST is elevated at 47, proBNP is 4800, procalcitonin is 9.67, viral panel including COVID-19 PCR are negative. Discharge Providers Provider Date of admission: 02/24/20 22:36 Discharge Date: 02/27/20 Consults: 02/24/20 22:52 Consult to Respiratory Therapy Evaluate & Treat Comment: hypoxia and CAP Physician Instructions: Evaluate and treat 02/25/20 13:32 Consult to Physical Therapy Evaluate & Treat Comment: Physician Instructions: Evaluate and Treat Discharge provider: Emre Romero MD Summary Hospital Course Discharge Diagnosis: 1. Left lower lobe pneumonia 2. Group B strep bacteremia 3. Chronic atrial fibrillation 4. Chronic hyponatremia Patient was admitted and started on Zithromax and Rocephin for pneumonia. Her blood cultures from admission came back positive for group B strep. We stopped Zithromax and continued Rocephin. Echo does not show any evidence of endocarditis. Patient has improvement in presenting symptoms. She will come in to the infusion clinic for 10 more days of IV antibiotic to complete total 14 days therapy for the bacteremia. She is on warfarin for atrial fibrillation which appears chronic. Her INR was 2.3 on admission and 1.7 on February 26 day of discharge. Warfarin dose was left unchanged due to concern INR will increase on antibiotic therapy. Instructed to recheck INR in a week. Also noted to be hyponatremic with serum sodium 126 on admission and 127 on day of discharge. Etiology and chronicity of hyponatremia is unknown at this time but should be followed up on with PCP. Status at Discharge Cognitive/behavioral status at discharge: oriented Functional status at discharge: independent ambulation Overall status at discharge: patient is progressing back to baseline Time Spent with Patient Time spent: Greater than 30 minutes Exam Vital Signs (past 8 hours): - 02/27/20 07:56 02/27/20 13:07 Temperature 98.9 F 97.6 F Pulse Rate 104 H 92 H Respiratory Rate 16 17 Blood Pressure 154/93 H 151/71 H Pulse Oximetry 94 93 Oxygen Delivery Method Nasal Cannula Oxygen Flow Rate 0 Objective Labs Result Diagrams: 02/26/20 05:25 02/26/20 05:25 Labs: Laboratory Results - last 24 hr 02/27/20 05:30 PT 19.6 H INR 1.7 H PFSH Medical History Atrial fibrillation, chronic Essential hypertension Hyperlipidemia Hypothyroid Social History household members: none Smoking Status: Former smoker alcohol intake: former Discharge Plan Discharge Plan Patient Disposition: Home Provider Discharge Comment: You were admitted for pneumonia. Blood cultures from admission were positive for Group B strep bacteremia. ECHO on 02/27/2020 does not indicate any infection of heart valves. You will need 10 more days of IV ceftriaxone at Infusion Clinic to complete total 14 days of antibiotic treatment. Please have INR checked next week and follow up with PCP. Also your sodium level is low for unclear reasons and should be rechecked and followed up on with PCP. Discharge orders & Medications Prescriptions: New ceftriaxone 2 gram recon soln 2 g IV DAILY 10 Days Qty: 10 RF: 0 Continued losartan 50 mg tablet 50 mg PO BID RF: 0 atorvastatin 40 mg tablet 20 mg PO BID RF: 0 metoprolol tartrate 100 mg tablet 50 mg PO BID RF: 0 amlodipine 5 mg tablet 5 mg PO DAILY RF: 0 levothyroxine 88 mcg tablet 88 mcg PO DAILY RF: 0 omeprazole 20 mg capsule,delayed release(DR/EC) 20 mg PO BEDTIME RF: 0 hydrochlorothiazide 12.5 mg tablet 12.5 mg PO DAILY RF: 0 warfarin 3 mg Tablet 3.75 mg PO SEEINSTR RF: 0 warfarin 5 mg Tablet 5 mg PO SEEINSTR RF: 0 ferrous gluconate 324 mg (37.5 mg iron) Tablet 324 mg PO DAILY RF: 0 magnesium oxide 400 mg magnesium Capsule 400 mg PO BID RF: 0 Follow up/Referrals: Evaristo James MD [Non-Staff] - 1 Week Discharge Health Status Multidrug resistant organism: No MDRO Diet/Activity/Treatments Diet: Regular Quality VTE Deep Vein Thrombosis/Pulmonary Embolism Present on Admission: No
[2020-02-27 15:20] VITALS: BP 136/82; PULSE 104; RESP 17; TEMP 37.3; O2SAT 93
--- NOTE | 2020-02-27 17:01 | PC.NURSE ---
discharge instructions given to patient and daughter in law. pt aware she has an appt for her infusion tomorrow at 11:30 am. gave instruction regarding midline care.
--- NOTE | 2020-02-28 08:14 | CM.DPNOTE ---
DC Note Late Entry Worked w/patient and her dtr Laura throughout the day yesterday. Dr Romero discharged patient and ordered 10 additional days of IV ceftriaxone 2 g, Q24. Patient had PICC in place. Spoke w/patient and dtr in the AM and they agreed adult children could transport patient into the [facility] once daily for her infusion. Patient lives in [place], however, family did not feel this was a barrier, morning slot was requested. Patient/dtr requested [facility]in referral for RN/PT/OT After dialogue back/forth w/oncology paint prep technician and reservations sales agent, printed the form Outside provider infusion clinic orders from [facility], Dr Romero completed and this MANAGER POOL faxed to oncology reservations sales agent (patient has MCR, did not need prior auth for infusion). Patient was then scheduled for her infusion 02.28.20 (today) at 1130. Patient and dtr Laura were agreeable. Placed call to Latasha at [facility] and gave referral. Latasha suggested that an RN would be available in the next 24-[address] a call to patient to arrange. Faxed completed and signed [facility] order, H+P, DC Summary and therapy notes. Plan: DC 02.27.20, home w/dtr Laura, outpatient IV abx infusion through [facility] and brandin for RN (PICC dressing change) and PT/OT, left via family auto JW
== END 2020-02-27 16:58 | disposition home or self-care (01) | DRG 193 ==
LOC: ED 22:22 → AC 22:37
PROVIDERS: Internal Medicine; Admitting Provider Nurse Practitioner Family; Emergency Provider Emergency Medicine; Referring Provider Emergency Medicine; Visit Provider Nurse Practitioner Family
DX: J15.3 Pneumonia due to streptococcus, group B (principal); J96.01 Acute respiratory failure with hypoxia; R78.81 Bacteremia; E87.1 Hypo-osmolality and hyponatremia; I48.20 Chronic atrial fibrillation, unspecified; I25.10 Atherosclerotic heart disease of native coronary artery without angina pectoris; I10 Essential (primary) hypertension; E78.5 Hyperlipidemia, unspecified; E03.9 Hypothyroidism, unspecified; M25.562 Pain in left knee; Z79.01 Long term (current) use of anticoagulants; Z20.822 Contact with and (suspected) exposure to COVID-19; Z87.891 Personal history of nicotine dependence; Z66 Do not resuscitate
CPT/HCPCS: 36415; 71045; 80048; 80053; 82550; 82553; 83605; 83690; 83735; 83880; 84145; 84484; 85025; 85379; 85610; 87040; 87150; 87186; 87205; 87633; 87635; 93005; 93010; 93306; 93971; 94760; 96361; 96365; 96367; 96375; 97116; 97161; 99283; 99284; C9803; J0696; J1642; J1885; J1940

== ENCOUNTER → 2020-03-06 11:30 | Oncology outpatient (ONC) | payer MEDICARE, SELFPAY ==
[2020-02-24 22:54] VITALS: BMI 24.3
[2020-02-28] MEDS: CEFTRIAXONE 2 GM/50 ML FROZ.PIGGY IV (12:10)
[2020-02-28 12:42] VITALS: BP 141/87; PULSE 105; RESP 20; TEMP 36.4; O2SAT 94
[2020-02-29] MEDS: CEFTRIAXONE 2 GM/50 ML FROZ.PIGGY IV (11:37)
[2020-02-29 12:00] VITALS: BP 140/76; PULSE 93; RESP 18; TEMP 37; O2SAT 96
--- NOTE | 2020-02-29 12:44 | PC.NURSE ---
Infusion note: Patient arrived to for daily IV Rocephin infusion, awake, alert, and very pleasant. PICC line to SURJIT, infusing well without any resistance. PICC line dressing changed per protocol on 02/29/2020. Daughter Shazia at bedside providing supportive care. VSS and afebrile. Ambulated with FWW, steady. Home post infusion via private vehicle.
[2020-03-01] MEDS: CEFTRIAXONE 2 GM/50 ML FROZ.PIGGY IV (11:45)
[2020-03-01 11:55] VITALS: BP 143/88; PULSE 94; RESP 16; TEMP 36.3; O2SAT 99
[2020-03-02 11:35] VITALS: BP 140/76; PULSE 99; RESP 16; TEMP 36.7; O2SAT 96
[2020-03-02] MEDS: CEFTRIAXONE 2 GM/50 ML FROZ.PIGGY IV (11:37)
[2020-03-03 14:12] VITALS: BP 133/78; PULSE 88; RESP 18; TEMP 36.6; O2SAT 94
[2020-03-03] MEDS: CEFTRIAXONE 2 GM/50 ML FROZ.PIGGY IV (14:35)
[2020-03-04] MEDS: CEFTRIAXONE 2 GM/50 ML FROZ.PIGGY IV (11:45)
[2020-03-04 11:52] VITALS: BP 142/76; PULSE 91; RESP 18; TEMP 36.8; O2SAT 96
[2020-03-05 11:40] VITALS: BP 131/81; PULSE 97; RESP 18; O2SAT 95
[2020-03-05] MEDS: CEFTRIAXONE 2 GM/50 ML FROZ.PIGGY IV (11:40)
[2020-03-05 11:44] VITALS: TEMP 37.3
[2020-03-06] MEDS: CEFTRIAXONE 2 GM/50 ML FROZ.PIGGY IV (12:09)
[2020-03-06 12:11] VITALS: BP 127/70; PULSE 92; RESP 18; TEMP 37.3; O2SAT 95
[2020-03-06 12:57] LABS: Blood Urea Nitrogen 12 mg/dL (7-17); Calcium 8.7 mg/dL (8.4-10.2); Carbon Dioxide 32 mmol/L (22-32); Chloride 89 mmol/L (98-107); Estimated Glomerular Filt Rate > 60.0 mL/min (>60); Glucose 115 mg/dL (80-110); HEMOLYSIS < 15 (0-50); Potassium 3.1 mmol/L (3.4-5.1); Sodium 125 mmol/L (137-145)
[2020-03-07] MEDS: CEFTRIAXONE 2 GM/50 ML FROZ.PIGGY IV (11:43)
--- NOTE | 2020-03-07 11:48 | PC.NURSE ---
Addendum entered by Johana Vazquez R.N. 03/07/20 12:35: Infused, flushed and wheeled to private vehicle. Last dose for 03/08. Original Note: Nusing infusion note Pt arrived to for infusion, LUE PICC flushes well, IV ABX infusing with no difficulties. VSS.
[2020-03-07 12:34] VITALS: BP 137/69; PULSE 67; RESP 18; TEMP 36.3; O2SAT 97
[2020-03-07] MEDS: SODIUM CHLORIDE 0.9% 250 ML 21 ML IV (12:35)
[2020-03-08] MEDS: CEFTRIAXONE 2 GM/50 ML FROZ.PIGGY IV (11:38)
[2020-03-08 11:42] VITALS: BP 124/77; PULSE 87; RESP 18; TEMP 37.1; O2SAT 95
--- NOTE | 2020-03-08 11:57 | PC.NURSE ---
PATIENT HERE FOR INFUSION WITH FAMILY MEMBER PRESENT. DENIES FEVER, DENIES CHILLS. VSS, AFEBRILE SAT 95% ON RA. FAXED BMP RESULTS FROM 03/[address] VEELZ'S OFFICE, PATIENT STATES HAS NOT HEARD BACK ABOUT HER LABS, AND THIS FIRE LOOKOUT IS UNABLE TO FIND DOCUMENTATION TO IF RESULTS WERE PREVIOUSLY SENT. ENCOURAGED PATIENT TO CALL PCP DR VELEZ'S OFFICE TO SPEAK WITH ON DR R/T POTASSIUM 3.1, THEY MAY WANT TO CALL IN A SUPPLEMENT. FAMILY MEMBER DID SO, AND SCRIPT WAS CALLED INTO PATIENT'S PHARMACY WITH ADDITIONAL INSTRUCTIONS TO CALL TUESDAY TO SCHEDULE F/U W/ PCP NEXT WEEK AND FOR ADDITIONAL LAB DRAWS NEXT WEEK. TODAY IS PATIENT'S LAST DAY OF ANTIBIOTIC REGIMEN. MIDLINE IV (THIS IS NOT A PICC LINE, BUT MIDLINE PERIPHERAL) DC'D INTACT AFTER THIS DOSE COMPLETED. PATIENT TOLERATED WELL. PATIENT LEFT AMBULATORY WITH WALKER WITH FAMILY MEMBER WITHOUT SIGNS OR SYMPTOMS OF DISTRESS.
== END ==
PROVIDERS: PCP Internal Medicine; Referring Provider Internal Medicine; Visit Provider Internal Medicine
DX: J18.9 Pneumonia, unspecified organism (principal); B95.1 Streptococcus, group B, as the cause of diseases classified elsewhere; E87.1 Hypo-osmolality and hyponatremia
CPT/HCPCS: 36592; 80048; 96365; 96523; J0696; J1642

== ENCOUNTER → 2020-09-06 09:32 | Outpatient (CLI) | payer MEDICARE, SELFPAY ==
[2020-02-24 22:54] VITALS: BMI 24.3
[2020-09-06 12:14] LABS: COVID-19 CEPHEID PCR (VTM/NP) Negative (Negative)
== END ==
PROVIDERS: PCP Internal Medicine; Visit Provider Student in an Organized Health Care Education/Training Program
DX: Z20.822 Contact with and (suspected) exposure to COVID-19 (principal)
CPT/HCPCS: C9803; U0003

== ENCOUNTER → 2022-02-10 14:44 | Outpatient (CLI) | payer MEDICARE, SELFPAY ==
[2020-02-24 22:54] VITALS: BMI 24.3
--- NOTE | 2022-02-10 | DI.ECHO.S_ITS ---
[place] +---------+ [facility] +---------+ : : [address] : [address] : : : : [id number] : : : : Phone: [phone] +---------+ Echocardiogram Report + + :Name: RAGHAV PATEL Study Date: 02/10/2022 Height: 66 in : :[facility] ReadingLocation: Weight: 145 lb : : Gender: Female BSA: 1.7 m2 : :: 1935 Age: 86 yrs BP: 130/82 mmHg: :Reason For Study: CARDIAC MURMUR : :Ordering Physician: REDDY, : :VIPIN Performed By: Alicia Degroot : :Referring: VIPIN DONALDSON : + + Interpretation Summary 1) Normal left ventricular size and thickness with midly reduced systolic function (EF 45-50%). 2) Moderately enlarged right ventricle with mildly reduced function. 3) There is markedly severe biatrial enlargement (left worse than right), suggesting restrictive physiology. 4) There is mild to moderate aortic stenosis (valve area 1.3cm2, mean gradient 8mmHg, severity ratio 0.44). 5) There is moderate to severe mitral regurgitation. 6) There is moderate to severe tricuspid regurgitation. 7) The right ventricular systolic pressure is estimated to be at least 46 mmHg based on an estimated right atrial pressure of 15 mm Hg. 8) Compared to the Echo done 02/27/2020, LVEF has decreased from normal to mildly reduced on this study. Procedure: A two-dimensional transthoracic echocardiogram with color flow and Doppler was performed. The study quality was technically adequate. Comparison is made with the echocardiogram of 02/27/2020. The patient was in atrial fibrillation with heart rates between 68-76 bpm during the exam. Left Ventricle: The left ventricle is normal in size and wall thickness. The ejection fraction is estimated to be 45-50%. There is mild global hypokinesis of the left ventricle. Diastolic function could not be accurately assessed due to atrial fibrillation. Right Ventricle: The right ventricle is not well visualized. The right ventricle is moderately dilated. Right ventricular systolic function is mildly reduced. Atria: There is marked biatrial enlargement. There is no Doppler evidence for an interatrial shunt. Mitral Valve: The mitral valve leaflets are mildly calcified. There is mild to moderate mitral annular calcification. There is moderate to severe mitral regurgitation. Aortic Valve: The aortic valve is mildly calcified. The aortic valve opens well. There is mildly reduced leaflet mobility. There is mild to moderate aortic stenosis. No aortic regurgitation is present. Tricuspid Valve: The tricuspid annulus is dilated. The tricuspid valve leaflets are thin and pliable. There is moderate to severe tricuspid regurgitation. The right ventricular systolic pressure is estimated to be at least 46 mmHg based on an estimated right atrial pressure of 15 mm Hg. Pulmonic Valve: The pulmonic valve leaflets are thin and pliable; valve motion is normal. There is mild pulmonic regurgitation. Great Vessels: The aortic root is normal size. The dimensions of the ascending aorta are normal. The IVC is dilated (diameter is greater than 2.1 cm) and it collapses less than 50% with a sniff. This suggests a high right atrial pressure of 15 mm Hg. Pericardium/ Pleura There is no pericardial effusion. There is no pleural effusion. MMode/2D Measurements & Calculations LVIDd: 4.5 cm LVOT diam: 2.0 cm LVIDs: 3.4 cm Ao root diam: 3.1 cm FS: 24.3 % asc Aorta Diam: 3.5 cm EPSS: 0.86 cm Ao Arch Diam (Prox Trans): 2.9 cm IVSd: 0.85 cm LVPWd: 0.92 cm LV rangel. diameter/BSA (cm/m^2): 2.6 LV sys. diameter/BSA (cm/m^2): 2.0 LA A2 area: 49.6 cm2 RA long axis: 7.7 cm LA A4 area: 47.7 cm2 RA area: 38.6 cm2 LA length (vol): 8.2 cm RA vol: 165.6 ml LA vol: 243.7 ml RA : 94.9 ml/m2 LA vol index: 139.7 ml/m2 IVC diam: 2.9 cm TAPSE: 1.7 cm Doppler Measurements & Calculations Ao V2 max: 193.1 cm/sec LVOT Max Ovidio: 85.6 cm/sec Ao V2 mean: 128.0 cm/sec LV V1 max P.9 mmHg Ao max P.9 mmHg LV V1 VTI: 18.6 cm Ao mean P.8 mmHg ANITA(I,D): 1.3 cm2 Ao V2 VTI: 42.4 cm ANITA(V,D): 1.3 cm2 sev ratio: 0.44 ANITA indexed to BSA (cm^2/m^2): 0.76 MV E max ovidio: 136.7 cm/sec TR max ovidio: 276.2 cm/sec MV A max ovidio: 3.7 cm/sec TR max P.5 mmHg MV E/A: 36.8 PA V2 max: 76.0 cm/sec Med Peak E' Ovidio: 5.3 cm/sec PA V2 mean: 51.3 cm/sec E/E' med: 25.8 PA mean P.2 mmHg Lat Peak E' Ovidio: 9.8 cm/sec PA pr(Accel): 41.3 mmHg E/E' lat: 14.0 E/e' average: 19.9 MV dec time: 0.23 sec MR ERO: 0.22 cm2 MR PISA: 3.0 cm2 SV(LVOT): 56.3 ml MR flow rate: 109.2 cm3/sec MR PISA radius: 0.69 cm Reading Physician:04:37 PM
== END ==
PROVIDERS: PCP Internal Medicine; Referring Provider Internal Medicine Cardiovascular Disease; Visit Provider Internal Medicine Cardiovascular Disease
DX: R01.1 Cardiac murmur, unspecified (principal); I08.3 Combined rheumatic disorders of mitral, aortic and tricuspid valves
CPT/HCPCS: 93306

== ENCOUNTER → 2023-04-14 12:26 | Outpatient (CLI) | payer MEDICARE, SELFPAY ==
[2020-02-24 22:54] VITALS: BMI 24.3
--- NOTE | 2023-04-14 | DI.ECHO.S_ITS ---
[place] +---------+ Hospital +---------+ : : [address] : [address] : : : : [id number] : : : : Phone: [phone] +---------+ Echocardiogram Report + + :Name: RAGHAV PATEL Study Date: 04/14/2023 Height: 66 in : :[facility] ReadingLocation: Weight: 142 lb : : Gender: Female BSA: 1.7 m2 : :: 1935 Age: 87 yrs BP: 129/77 mmHg: :Reason For Study: NONRHEUMATIC AORTIC VALVE STENOSIS : :Ordering Physician: REDDY, : :VIPIN Performed By: Sampson Enriquez : :Referring: VIPIN BLAKELY : + + Interpretation Summary The ejection fraction is estimated to be 45-50%. Diastolic function could not be accurately assessed due to atrial fibrillation. The right ventricle is moderately dilated. Right ventricular systolic function is mildly reduced. There is marked biatrial enlargement. There is severe mitral regurgitation. There is low-flow, low gradient aortic stenosis, probably moderate. There is severe tricuspid regurgitation. The right ventricular systolic pressure is estimated to be at least 43 mmHg based on an estimated right atrial pressure of 15 mm Hg however this is an underestimation due to the severity of TR. Compared to the prior study dated 02/10/2022, the aortic valve gradient has increased. Procedure: A two-dimensional transthoracic echocardiogram with color flow and Doppler was performed. The study quality was technically adequate. Comparison is made with the echocardiogram of 02/10/2022. The patient was in atrial fibrillation with controlled ventricular rate during the exam. The heart rate ranged between 63-75 bpm during the study. Left Ventricle: The left ventricle is normal in size and wall thickness. The ejection fraction is estimated to be 45-50%. Diastolic function could not be accurately assessed due to atrial fibrillation. Right Ventricle: The right ventricle is moderately dilated. Right ventricular systolic function is mildly reduced. Atria: There is marked biatrial enlargement. The interatrial septum grossly appears intact with no obvious evidence for an atrial septal defect. Mitral Valve: The mitral valve is normal in structure and function. There is no mitral valve stenosis. There is severe mitral regurgitation. Aortic Valve: The aortic valve is trileaflet. The aortic valve is moderately calcified. There is moderate aortic stenosis. The aortic valve mean gradient is 11 mmHg. The peak aortic velocity is 2.2 m/sec. The dimensionless index is 0.41. No aortic regurgitation is present. Tricuspid Valve: The tricuspid annulus is dilated. There is no tricuspid stenosis. There is severe tricuspid regurgitation. The right ventricular systolic pressure is estimated to be at least 43 mmHg based on an estimated right atrial pressure of 15 mm Hg. Pulmonic Valve: The pulmonic valve is not well visualized. There is no pulmonic valvular stenosis. There is no pulmonic valvular regurgitation. Great Vessels: The aortic root is normal size. The dimensions of the ascending aorta are normal. The IVC is dilated (diameter is greater than 2.1 cm) and it collapses less than 50% with a sniff. This suggests a high right atrial pressure of 15 mm Hg. Flow reversal in IVC. Pericardium/ Pleura There is no pericardial effusion. There is no pleural effusion. MMode/2D Measurements & Calculations LVIDd: 3.7 cm LVOT diam: 1.8 cm LVIDs: 3.0 cm Ao root diam: 2.9 cm FS: 17.4 % asc Aorta Diam: 3.5 cm IVSd: 0.95 cm Ao Arch Diam (Prox Trans): 3.0 cm LVPWd: 1.0 cm LV rangel. diameter/BSA (cm/m^2): 2.1 LV sys. diameter/BSA (cm/m^2): 1.7 LA A2 area: 44.4 cm2 RA long axis: 7.5 cm LA A4 area: 47.0 cm2 RA area: 36.8 cm2 LA length (vol): 8.3 cm RA vol: 152.6 ml LA vol: 213.0 ml RA : 88.2 ml/m2 LA vol index: 123.2 ml/m2 IVC diam: 2.7 cm RVD1 (basal): 4.4 cm RVD2 (mid): 3.3 cm TAPSE: 1.8 cm Doppler Measurements & Calculations Ao V2 max: 204.2 cm/sec LVOT Max Ovidio: 104.7 cm/sec Ao V2 mean: 138.8 cm/sec LV V1 max P.4 mmHg Ao max P.7 mmHg LV V1 VTI: 23.8 cm Ao mean P.1 mmHg ANITA(I,D): 1.3 cm2 Ao V2 VTI: 45.2 cm ANITA(V,D): 1.3 cm2 sev ratio: 0.53 ANITA indexed to BSA (cm^2/m^2): 0.76 MV E max ovidio: 119.4 cm/sec TR max ovidio: 268.2 cm/sec MV A max ovidio: 22.9 cm/sec TR max P.8 mmHg MV E/A: 5.2 PA V2 max: 70.9 cm/sec Med Peak E' Ovidio: 6.2 cm/sec PA V2 mean: 45.3 cm/sec E/E' med: 19.2 PA mean P.96 mmHg Lat Peak E' Ovidio: 14.6 cm/sec PA pr(Accel): 37.9 mmHg E/E' lat: 8.2 E/e' average: 13.7 MV dec time: 0.18 sec MR ERO: 0.42 cm2 MR PISA: 5.7 cm2 SV(LVOT): 59.1 ml MR flow rate: 209.4 cm3/sec MR PISA radius: 0.95 cm Reading Physician:06:53 PM
== END ==
LOC: ECHO 12:29
PROVIDERS: PCP Internal Medicine; Referring Provider Internal Medicine Cardiovascular Disease; Visit Provider Internal Medicine Cardiovascular Disease
DX: I08.3 Combined rheumatic disorders of mitral, aortic and tricuspid valves (principal)
CPT/HCPCS: 93306

== ENCOUNTER → 2024-08-28 13:24 | Outpatient (CLI) | payer MEDICARE, SELFPAY ==
[2024-07-19 11:57] VITALS: BMI 22.6
--- NOTE | 2024-08-28 13:26 | DI.ECHO.S_ITS ---
Version: 1 Study ID: [id number] [address] [place] [address] Name: RAGHAV PATEL Study Date: 08/28/2024, 2: 05 PM : 1935 BP: 122 / 79 mmHg Gender: Female Height: 68 in Age: 88 Years Weight: 132 lb BSA: 1.71 mA??? Ordering: VIPIN DONALDSON Referring: VIPIN DONALDSON Clinician: Alicia Degroot Reason For Study: CHRONIC SYSTOLIC HEART FAILURE History: Summary Statements 1) Normal left ventricular size and thickness with midly reduced systolic function (EF 45-50%). 2) Mildly enlarged right ventricle with mildly reduced function. 3) There is markedly severe biatrial enlargement (left worse than right), suggesting restrictive physiology. 4) There is moderate aortic stenosis (valve area 0.9cm2, mean gradient 9mmHg, severity ratio 0.35). 5) There is moderate mitral regurgitation. 6) There is moderate to severe tricuspid regurgitation. 7) The right ventricular systolic pressure is estimated to be at least 40 mmHg based on an estimated right atrial pressure of 15 mm Hg. 8) Compared to the Echo done 02/10/2022, no significant change. Procedure: A two-dimensional transthoracic echocardiogram with color flow and Doppler was performed. The study quality was technically adequate. Comparison is made with the echocardiogram of 04/14/2023. The patient was in atrial fibrillation with heart rates between 66-73 bpm during the exam. Left Ventricle: The left ventricle is normal in size and wall thickness. The ejection fraction is estimated to be 45-50%. Diastolic function could not be accurately assessed due to atrial fibrillation. Right Ventricle: The right ventricle is mildly dilated. Right ventricular systolic function is mildly reduced. Atria: There is marked biatrial enlargement. There is no Doppler evidence for an interatrial shunt. Mitral Valve: There is moderate mitral annular calcification. The mitral valve leaflets appear moderately thickened. There is moderate mitral regurgitation. There are multiple regurgitant jets present. Aortic Valve: The aortic valve is trileaflet. The aortic valve is moderately calcified. The peak aortic velocity is 2.02 m/sec. The aortic valve mean gradient is 8.6 mmHg. The calculated aortic valve area is 0.88 cm2. There is moderate aortic stenosis. Dimensionless index of 0.35. There is trace aortic regurgitation. Tricuspid Valve: The tricuspid annulus is dilated. There is moderate to severe tricuspid regurgitation. The right ventricular systolic pressure is estimated to be at least 40 mmHg based on an estimated right atrial pressure of 15 mm Hg. Pulmonic Valve: The pulmonic valve leaflets are thin and pliable; valve motion is normal. There is mild pulmonic regurgitation. Great Vessels: The aortic root is normal size. The dimensions of the ascending aorta are normal. The IVC is dilated (diameter is greater than 2.1 cm) and it collapses less than 50% with a sniff. This suggests a high right atrial pressure of 15 mm Hg. Pericardium/ Pleura: There is no pericardial effusion. There is no pleural effusion. 2D and M-Mode Measurements and Calculations LVIDd: 4.4 cm LVOT diam: 1.73 cm LVIDs: 3.2 cm Ao root diam: 2.9 cm IVSd: 0.73 cm asc Aorta Diam: 3.5 cm LVPWd: 0.69 cm Ao Arch Diam (Prox Trans): 3.0 cm LV rangel. diameter/BSA (cm/m^2): 2.6 LV sys. 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 IVC diam: 2.7 cm LA A2 area: 46.8 bulk plant supervisor??? RA area: 37.7 bulk plant supervisor??? LA length (vol): 7.9 cm RA long axis: 7.5 cm LA vol: 229.4 ml RA vol: 161.0 ml LA vol index: 133.9 ml/mA??? RA : 94.0 ml/mA??? 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 Electronically signed by: Vipin Donaldson 08/28/2024, 4: 02 PM
== END ==
PROVIDERS: PCP Student in an Organized Health Care Education/Training Program; Referring Provider Internal Medicine Cardiovascular Disease; Visit Provider Internal Medicine Cardiovascular Disease
DX: I08.3 Combined rheumatic disorders of mitral, aortic and tricuspid valves (principal); I50.22 Chronic systolic (congestive) heart failure
CPT/HCPCS: 93306

== ENCOUNTER → 2024-11-01 11:35 | Outpatient (CLI) | payer MEDICARE, SELFPAY ==
[2024-07-19 11:57] VITALS: BMI 22.6
[2024-11-01 12:16] LABS: Hematocrit 43.0 % (36-46); Hemoglobin 14.8 g/dL (12.0-16.0); Mean Corpuscular HGB Conc 34.3 % (30-36); Mean Corpuscular Hemoglobin 33.9 PG (26-34); Mean Corpuscular Volume 98.9 fL (80-100); Platelet Count 255 X10^3/uL (150-400)
[2024-11-01 12:48] LABS: Blood Urea Nitrogen 19 mg/dL (7-17); Calcium 10.0 mg/dL (8.4-10.2); Carbon Dioxide 24 mmol/L (22-32); Chloride 99 mmol/L (98-107); Estimated Glomerular Filt Rate 52 mL/min (>60); Glucose 83 mg/dL (70-99); HEMOLYSIS < 15 (0-50); Potassium 4.4 mmol/L (3.4-5.1); Sodium 135 mmol/L (137-145)
[2024-11-01 12:56] LABS: NT-proBNP (BNP-Adult 18+) 2230 pg/mL (<450)
== END ==
PROVIDERS: PCP Student in an Organized Health Care Education/Training Program; Referring Provider Internal Medicine Cardiovascular Disease; Visit Provider Internal Medicine Cardiovascular Disease
DX: I50.22 Chronic systolic (congestive) heart failure (principal)
CPT/HCPCS: 36415; 80048; 83880; 85027